=== PATIENT | male | born 1995 | race Caucasian/White ===

== ENCOUNTER 2020-06-13 08:48 | Emergency (ER) | payer MEDICAID, SELFPAY ==
[2020-06-13 08:54] VITALS: BP 142/85; PULSE 82; RESP 18; TEMP 36.3; O2SAT 99; BMI 26.3
--- NOTE | 2020-06-13 09:03 | ED_ITS ---
HPI - Abdominal Pain General: Chief Complaint: Abdominal Pain Stated Complaint: N/V, AB PAIN, SWEATING Time Seen by Provider: 06/13/20 08:54 History of Present Illness: HPI narrative: Patient is a 25-year-old male who comes to the ED with epigastric burning, nausea and vomiting. Past medical history of alcohol abuse. patient was recently seen by PCP on June 04 and diagnosed with pansinusitis and otitis media. Patient was put on Augmentin and Medrol Dosepak. Patient says ear infection, nasal congestion drainage and cough started approximately a week ago. Cough is still present in the nasal congestion and ear infection are improving. He describes the cough as productive. Patient admits to being a heavy daily drinker and says for the past 4 months he has drank 1/5 of vodka daily. Since he started getting sick a week ago his drinking is cut back considerably. He says he has probably drank a little more than 1/5 of whiskey over this past week, which is considerably less his daily amount for the past 7 days. His last alcoholic drink was a couple sips yesterday. Denies any DTs, anxiety, hallucinations. Approximately 3 days ago he started developing nausea, vomiting and epigastric pain. He says he has thrown up approximately 3 times a day for the past 3 days. He is also diaphoretic. Patient has been through alcohol detox in the past and states that he has not had any DTs, or any other complications during detox. Associated Symptoms: Reports nausea and vomiting; Denies chills, constipation, diarrhea, dysuria, fever(s), hematochezia and michele turia Review of Systems Const: Reports: change in appetite (decreased appetite) and diaphoresis; Denies: fever(s), chills or fatigue Eyes: Denies: change in vision or eye discomfort ENMT: Denies: throat pain, odynophagia, ear or mastoid pain, nasal discharge or nasal congestion Card: Denies: chest pain, palpitations, edema, swelling of feet/ankles, dyspnea on exertion or orthopnea Resp: Reports: productive cough; Denies: dyspnea or non-productive cough GI: Reports: abdominal pain (epigastric), nausea and vomiting; Denies: diarrhea, constipation or hematochezia : Denies: flank pain, difficulty urinating, dysuria or hematuria Musc: Denies: neck pain, back pain or extremity swelling Skin/Breast: Denies: rash or new lesions Neuro: Denies: headache(s), numbness in extremities or weakness in extremities PFSH ED PFSH: Social History Smoking and tobacco status: current every day smoker Current gender identity: Male Physical Exam Const: COMMON NORMALS: no acute distress, patient oriented x3 and alert GENERAL APPEARANCE: cooperative, comfortable and diaphoretic HENMT: COMMON NORMALS: normocephalic and EAC's normal HEAD & SCALP: normocephalic EXTERNAL AUDITORY CANAL: EAC's normal TYMPANIC MEMBRANE: TM abnormal TM laterality: right Details: erythematous (Mild erythema with clear fluid behind the TM.) and left (Erythema with cloudy fluid behind the TM.) Details: dull, erythematous and fluid behind TM MOUTH: Normal oral and palatal mucosa present THROAT: posterior oropharynx normal and uvula midline Neck/C-Spine: COMMON NORMALS: supple GENERAL: Yes normal visual inspection Resp: COMMON NORMALS: normal respiratory effort, No retractions, No use of accessory muscles and clear to auscultation bilaterally AUSCULTATION: clear to auscultation bilaterally Cardio: COMMON NORMALS: regular rate, regular rhythm, S1 normal heart sound present, S2 normal heart sound present, No gallops present (Cardio), No clicks present (Cardio), No murmurs present (Cardio) and Peripheral pulses 2+ throughout RATE: regular rate RHYTHM: regular rhythm HEART SOUNDS: S1 normal heart sound present and S2 normal heart sound present PERIPHERAL PULSES: Peripheral pulses 2+ throughout GI: COMMON NORMALS: Normal to inspection, nondistended, normoactive bowel sounds present, Soft to palpation and no masses PALPATION: Yes Soft to palpation and Yes Tenderness to palpation present (GI) Details: other (epigastric tenderness) : COMMON NORMALS: Yes no CVA tenderness BLADDER/KIDNEY EXAM: Yes no CVA tenderness Back/Pelvis: COMMON NORMALS: no CVA tenderness Extremity: COMMON NORMALS: normal to inspection Neuro: COMMON NORMALS: patient oriented x3 SENSORIUM/ORIENTATION: Yes alert GAIT: Yes Normal gait present MOTOR EXAM: No Tremors during motor activity present OTHER: No tremor seen on extremities. Skin: NARRATIVE SKIN EXAM: Diaphoresis, especially on head and neck. Course Reevaluation(s): Reevaluation #1: Patient says after IV fluids, Ativan, GI cocktail and Pepcid his symptoms are improving. Patient has no diaphoresis after meds patient says he is feeling a lot better. Time: 11:32 Vital Signs: Vital signs: Vital Signs Temperature 97.3 F L 06/13/20 08:54 Pulse Rate 104 H 06/13/20 12:18 Respiratory Rate 18 06/13/20 12:18 Blood Pressure 131/86 06/13/20 12:18 Pulse Oximetry 98 06/13/20 12:18 MDM - Abdominal Pain MDM Narrative: Medical decision making narrative: Patient is a 25-year-old male who comes to the ED with epigastric burning pain and nausea. Patient has a history of alcohol abuse and states that over the last week he has been cutting back his alcohol consumption. Patient denies any current or history of DTs, seizures or hallucinations. Patient is diaphoretic while here in the ED. Epigastric tenderness upon palpation. CBC and CMP were unremarkable. H. pylori negative. Alcohol not detected. Chest x-ray shows no acute findings, old granulomatous disease. EKG showed no acute findings or signs of MO. Patient was given an IV banana bag, Zofran, and Ativan and his symptoms greatly improved and has no more diaphoresis while here in the ED. GI cocktail greatly improved epigastric pain. Patient was diagnosed with gastritis from alcohol and alcohol withdrawal syndrome without any complications. Patient was discharged with a prescription for Carafate and Pepcid to help with his gastritis. He was instructed to contact his PCP in regards to alcohol detox plan if he chooses to. I also informed him he can return to ED as needed if he chooses to go through alcohol detox starts developing withdrawal symptoms. Patient understood and agreed with plan. Lab Data: Attestation: I reviewed the patient's lab results. Labs: Lab Results 06/13/20 06/13/20 06/13/20 Range/Units 09:00 09:00 09:00 WBC 6.0 (4.0-10.0) 10^3/ uL RBC 5.69 H (4.1-5.3) 10^6/u L Hgb 17.4 H (11.7-16.6) g/dL Hct 50.8 (42.0-52.0) % MCV 89.3 (80-94) fL MCH 30.6 (28.0-34.0) pg MCHC 34.3 (30.0-36.0) g/dL RDW 12.2 (12.1-15.1) % Plt Count 264 (130-400) 10^3/c mm MPV 9.4 (7.4-10.4) fL Neut % (Auto) 61.7 % Lymph % (Auto) 25.0 % Shelby % (Auto) 11.9 % Eos % (Auto) 0.2 % Baso % (Auto) 0.7 % Neut # (Auto) 3.73 (1.8-7.7) 10^3/u L Lymph # (Auto) 1.5 (0.8-4.8) 10^3/u L Shelby # (Auto) 0.7 (0.2-0.9) 10^3/u L Eos # (Auto) 0.0 (0.0-0.8) 10^3/u L Baso # (Auto) 0.0 (0.0-0.1) 10^3/u L Nucleated RBC % (a uto) 0 % Nucleated RBCs # 0.0 /100WBC Sodium Cancelled Potassium Cancelled Chloride Cancelled Carbon Dioxide Cancelled Anion Gap Cancelled BUN Cancelled Creatinine Cancelled GFR Calculation Cancelled Glucose Cancelled Calculated Osmolal ity Cancelled Calcium Cancelled Total Bilirubin Cancelled AST Cancelled ALT Cancelled Alkaline Phosphata se Cancelled Total Protein Cancelled Albumin Cancelled Globulin Cancelled Lipase Cancelled Urine Color (Yellow) Urine Appearance (CLEAR) Urine pH (5-7) Ur Specific Gravit y (1.005-1.030) Urine Protein (Negative) Urine Glucose (UA) (Normal) Urine Ketones (Negative) Urine Blood (Negative) Urine Nitrate (Negative) Urine Bilirubin (Negative) Urine Urobilinogen (Negative) mg/dL Ur Leukocyte Suzanne ase (Negative) Urine RBC (0-2) /hpf Urine WBC (0-5) /hpf Ur Squamous Epith Cells (0-5) /hpf Amorphous Sediment Urine Bacteria (NONE) /hpf Urine Mucus /hpf Ur Oval Fat Bodies /hpf Ethyl Alcohol Cancelled H. pylori IgG Anti body Negative (Negative) 06/13/20 06/13/20 Range/Units 09:52 11:30 WBC (4.0-10.0) 10^3/ uL RBC (4.1-5.3) 10^6/u L Hgb (11.7-16.6) g/dL Hct (42.0-52.0) % MCV (80-94) fL MCH (28.0-34.0) pg MCHC (30.0-36.0) g/dL RDW (12.1-15.1) % Plt Count (130-400) 10^3/c mm MPV (7.4-10.4) fL Neut % (Auto) % Lymph % (Auto) % Shelby % (Auto) % Eos % (Auto) % Baso % (Auto) % Neut # (Auto) (1.8-7.7) 10^3/u L Lymph # (Auto) (0.8-4.8) 10^3/u L Shelby # (Auto) (0.2-0.9) 10^3/u L Eos # (Auto) (0.0-0.8) 10^3/u L Baso # (Auto) (0.0-0.1) 10^3/u L Nucleated RBC % (a uto) % Nucleated RBCs # /100WBC Sodium 135 L Potassium 4.3 Chloride 96 L Carbon Dioxide 31 H Anion Gap 12.3 BUN 11 Creatinine 0.9 GFR Calculation 102.0 Glucose 103 Calculated Osmolal ity 280 L Calcium 9.6 Total Bilirubin 0.6 AST 27 ALT 19 Alkaline Phosphata se 89 Total Protein 7.8 Albumin 4.5 Globulin 3.3 Lipase 9 L Urine Color Yellow (Yellow) Urine Appearance Clear (CLEAR) Urine pH 5 (5-7) Ur Specific Gravit y 1.020 (1.005-1.030) Urine Protein Neg (Negative) Urine Glucose (UA) Norm (Normal) Urine Ketones 2+ H (Negative) Urine Blood Neg (Negative) Urine Nitrate Negative (Negative) Urine Bilirubin 1+ H (Negative) Urine Urobilinogen 4 H (Negative) mg/dL Ur Leukocyte Suzanne ase Negative (Negative) Urine RBC 0-4 H (0-2) /hpf Urine WBC 0-4 H (0-5) /hpf Ur Squamous Epith Cells 0-4 H (0-5) /hpf Amorphous Sediment Not Reportable Urine Bacteria Trace (NONE) /hpf Urine Mucus 3+ /hpf Ur Oval Fat Bodies 1+ /hpf Ethyl Alcohol < 10 H. pylori IgG Anti body (Negative) Imaging Data ^: CXR: Attestation: I personally reviewed and interpreted this imaging study as follows: Radiologist's impression: [facility] [address] [address] XRay Report Signed Patient: Milind Lantigua Unit #: [id number] : 1995 Age/Sex: 25 / M ADM Date: 06/13/20 Loc: ER Room/Bed: Attending Dr: Ordering Provider/Ordering MD: Leon Mace Date of Service: 06/13/20 Procedure(s): XR chest 1V portable [id number] Accession Number(s): [id number] Report Number: [id number] WS: [id number] Portable AP upright chest, 06/13/2020 Clinical Data: cough Comparison: None. Findings: No nodules, masses or effusions are seen. The heart is normal. The pulmonary vascularity is not increased. No pneumonia or pneumothorax is seen. There are small calcified granulomas throughout both lungs XR/XR chest 1V portable [id number] Impression: Old granulomatous disease. Dictated By: Vy Bustos MD Signed By: Vy Bustos MD Signed Date/Time: 06/13/20 1020 DD/ 1019 EKG Data ^: EKG 1: Attestation: I personally reviewed and interpreted this EKG as follows: EKG interpretation date: 06/13/20 Interpretation: Normal sinus rhythm, 85 bpm, no ST segment elevation or depression seen. No acute signs of MO present. Discharge Plan Discharge Patient Disposition: Home Clinical Impression: Alcohol withdrawal syndrome without complication Gastritis Qualifiers: Gastritis type: alcoholic Chronicity: acute Gastritis bleeding: presence of bleeding unspecified Qualified Code(s): K29.20 - Alcoholic gastritis without bleeding Condition: Stable Prescriptions: New Carafate 1 gram tablet 1 g PO Q6H Qty: 60 RF: 0 Pepcid 40 mg tablet 40 mg PO DAILY Qty: 30 RF: 0 Zofran 4 mg tablet 4 mg PO Q8H Qty: 15 RF: 0 No Action prazosin 1 mg capsule 3 mg PO BID RF: 0 divalproex [Depakote] 125 mg tablet,delayed release (DR/EC) 125 mg PO DAILY RF: 0 bupropion HCl [Wellbutrin SR] 100 mg tablet sustained-release 12 hr 100 mg PO BID RF: 0 amoxicillin-pot clavulanate [Augmentin] 875-125 mg tablet 1 tab PO BID 10 Days Qty: 20 RF: 0 methylprednisolone [Medrol (Jared)] 4 mg tablets,dose pack See Rx Instructions PO PER PKG DIR Qty: 21 RF: 0 Discharge Orders: Discharge ED (Routine); Ordered 06/13/20 Ordered By: Leon Mace Referrals: Cody Louis DO [Primary Care Provider] - Discharge Diet: Regular Discharge Activity: Increase activity as tolerated Patient Instructions: Gastritis (ED) Activity Restrictions/Additional Instructions: Follow-up with medical provider as directed in 5-7 days for reevaluation and to discuss alcohol cessation plan. Take medications as prescribed. I am sending you home with 2 mg of Ativan. Take 1 mg as needed for any alcohol withdrawal symptoms. Remember only take the Ativan if you are not drinking any alcohol. Return to the ER or your medical provider if condition worsens. Please read and understand discharge instructions. If any questions, please ask. Stand Alone Forms: Work/School Release Coding Level of Care Code ED Refractive Surgeon for Boris Fwnilda Exam Comprehensive
[2020-06-13] MEDS: lidocaine 2% viscous 15 ML, aluminum-mag hydrox-simethicon 30 ML, sucralfate oral liq 1 GM PO (09:24)
[2020-06-13] MEDS: ondansetron 2 mg/ML SDV 2 mL 4 MG IVP (09:27)
[2020-06-13] MEDS: LORazepam 2 mg/mL INJ 1 mL IVP (09:28)
[2020-06-13 09:39] LABS: H. Pylori IgG Antibody Negative (Negative)
[2020-06-13] MEDS: folic acid 1 MG, multivitamin inj 10 ML, thiamine 100 MG in sodium chloride 0.9% 1,000 ML 252.8 MG IV (09:40)
--- NOTE | 2020-06-13 09:52 | ECG_ITS ---
[facility] Test Date: 2020-06-13 Pat Name: Milind Lantigua Department: Room: Gender: Male Public Health Advisor: : 1995 Requested By: Leon Mace Order Number: [id number] Montaño MD: Mellisa Da Silva M.D. Measurements Intervals [place] Rate: 85 P: 60 MS: 112 QRS: 73 QRSD: 100 T: 49 QT: 363 QTc: 433 Interpretive Statements SINUS RHYTHM WITH SHORT MS INTERVAL NONSPECIFIC T-WAVE ABNORMALITY No previous ECG available for comparison Electronically Signed On 06-13-2020 20:22:05 HAND PICKER by Mellisa Da Silva M.D. [email or web address]
--- NOTE | 2020-06-13 10:12 | XR_ITS ---
WS: [id number] Portable AP upright chest, 06/13/2020 Clinical Data: cough Comparison: None. Findings: No nodules, masses or effusions are seen. The heart is normal. The pulmonary vascularity is not increased. No pneumonia or pneumothorax is seen. There are small calcified granulomas throughout both lungs XR/XR chest 1V portable [id number] Impression: Old granulomatous disease.
[2020-06-13 10:25] LABS: Basophils % 0.7 %; Eosinophils % 0.2 %; Hematocrit 50.8 % (42.0-52.0); Hemoglobin 17.4 g/dL (11.7-16.6); Lymphocytes # 1.5 10^3/uL (0.8-4.8); Mean Corpuscular HGB Conc 34.3 g/dL (30.0-36.0); Mean Corpuscular Hemoglobin 30.6 pg (28.0-34.0); Mean Corpuscular Volume 89.3 fL (80-94); Mean Platelet Volume 9.4 fL (7.4-10.4); Monocytes # 0.7 10^3/uL (0.2-0.9); Monocytes % 11.9 %; Neutrophils # 3.73 10^3/uL (1.8-7.7); Neutrophils % 61.7 %; Nucleated Red Blood Cells % 0 %; Platelet Count 264 10^3/cmm (130-400); Red Blood Count 5.69 10^6/uL (4.1-5.3); Red Cell Distribution Width 12.2 % (12.1-15.1)
[2020-06-13 10:26] LABS: Slide Review Slide Review Perform
[2020-06-13 10:29] VITALS: BP 137/86; PULSE 78; RESP 18; O2SAT 94
[2020-06-13 10:36] LABS: Alanine Aminotransferase 19 U/L (0-41); Albumin Level 4.5 g/dL (3.5-5.2); Alkaline Phosphatase 89 IU/L (40-130); Anion Gap 12.3 (5-19); Aspartate Amino Transferase 27 U/L (0-40); Blood Urea Nitrogen 11 mg/dL (6-20); Calcium 9.6 mg/dL (8.5-10.5); Carbon Dioxide 31 mmol/L (22-29); Chloride 96 mmol/L (98-107); Creatinine Clr Calc Pharmacy 152.2013; Globulin 3.3 g/dL (1.3-4.6); Glucose 103 mg/dL (65-115); Lipase 9 U/L (13-60); Osmolality Calculated 280 mOsm/kg (285-295); Potassium 4.3 mmol/L (3.5-5.1); Sodium 135 mmol/L (136-145); Total Bilirubin 0.6 mg/dL (0.15-1.2); Total Protein 7.8 g/dL (6.6-8.7)
[2020-06-13 10:38] LABS: Alcohol Level < 10 mg/dL (0-10)
[2020-06-13] MEDS: famotidine 20 mg/2 mL INJ 40 MG IVP (10:40)
[2020-06-13 12:01] LABS: Add Urine Culture? No; Bacteria Urine TRACE /hpf; Bilirubin Urine 1+ (Negative); Blood Urine Neg (Negative); Glucose Urine UA Norm (Normal); Ketones Urine 2+ (Negative); Leukocyte Esterase Urine Negative (Negative); Mucus Urine 3+ /hpf; Nitrate Urine Negative (Negative); Oval Fat Bodies Urine 1+ /hpf; Protein Urine Neg (Negative); RBC Urine 0-4 /hpf (0-2); Squamous Epithelial Cell Urine 0-4 /hpf (0-5); Urine Appearance Clear (CLEAR); Urine Color Yellow (Yellow); Urobilinogen Urine 4 mg/dL (Negative); WBC Urine 0-4 /hpf (0-5); pH Urine 5 (5-7)
[2020-06-13] MEDS: LORazepam 2 mg Tablet PO (12:15)
--- NOTE | 2020-06-13 12:15 | PC.NURSE ---
scanner not working even after unplugging and plugging back in, sent ativan home with pt to take when arriving home
[2020-06-13 12:18] VITALS: BP 131/86; PULSE 104; RESP 18; O2SAT 98
== END 2020-06-13 12:20 | disposition home or self-care (01) ==
PROVIDERS: Emergency Provider Physician Assistant; PCP Electrodiagnostic Medicine
DX: K29.20 Alcoholic gastritis without bleeding (principal); F10.230 Alcohol dependence with withdrawal, uncomplicated; F17.210 Nicotine dependence, cigarettes, uncomplicated
CPT/HCPCS: 12345; 36415; 71045; 80053; 80307; 81001; 83690; 85025; 86677; 93005; 96374; 96375; 99282; 99283; J2060; J2405; J3411; J3490; J7030

== ENCOUNTER 2020-10-18 19:19 | Inpatient (IN) | payer MEDICAID, SELFPAY ==
[2020-10-18] VITALS (15 sets, daily range): BP systolic 102–169; BP diastolic 52–96; PULSE 69–160; RESP 14–30; TEMP 36.4–36.6; O2SAT 91–100; BMI 24.3
--- NOTE | 2020-10-18 19:30 | CTR_ITS ---
PROCEDURE INFORMATION: Exam: CT Head Without Contrast Exam date and time: 10/18/2020 7:30 PM Age: 25 years old Clinical indication: Altered mental status/memory loss; Patient HX: AMS. Drug overdose. ; Additional info: AMS on drugs TECHNIQUE: Imaging protocol: Computed tomography of the head without contrast. Total images: 208 Radiation optimization: All CT scans at this facility use at least one of these dose optimization techniques: automated exposure control; mA and/or kV adjustment per patient size (includes targeted exams where dose is matched to clinical indication); or iterative reconstruction. COMPARISON: No relevant prior studies available. RADIATION DOSE METRICS: Total DLP (mGy-cm): 894.4 FINDINGS: Brain: Normal. No hemorrhage. Unremarkable white matter. No mass effect. Cerebral ventricles: No ventriculomegaly. Paranasal sinuses: Visualized sinuses are unremarkable. No fluid levels. Mastoid air cells: Visualized mastoid air cells are well aerated. Bones/joints: Unremarkable. No acute fracture. Soft tissues: Unremarkable. CT/CT head wo con* [id number] IMPRESSION: No acute intracranial abnormality. Radiation Dose CTDIVOL = (mGy): DLP = 894.4 (mGy-cm)
--- NOTE | 2020-10-18 19:30 | XRR_ITS ---
PROCEDURE INFORMATION: Exam: XR Chest Exam date and time: 10/18/2020 7:30 PM Age: 25 years old Clinical indication: Device placement; Ett placement (vent status); Additional info: Reduced breath sounds. AMS. On drugs. Post intubate TECHNIQUE: Imaging protocol: XR of the chest. Views: 1 view. Total images: 1 COMPARISON: CR XR chest 1V portable [id number] 06/13/2020 10:11 AM FINDINGS: Tubes, catheters and devices: Interval placement of an endotracheal tube with the tip directed toward the ostium of the right mainstem bronchus. Recommend retracting 3 cm for optimal positioning. EKG leads. Lungs: No visible active interstitial or alveolar airspace disease. Pleural spaces: Unremarkable. No pleural effusion. No pneumothorax. Heart/Mediastinum: Unremarkable. No cardiomegaly. Bones/joints: Unremarkable. XR/XR chest 1V portable [id number] IMPRESSION: Interval placement of an endotracheal tube with the tip directed toward the ostium of the right mainstem bronchus. Recommend retracting 3 cm for optimal positioning.
[2020-10-18] MEDS: ziprasidone 20 mg/mL SDV 10 MG IM (19:40)
[2020-10-18] MEDS: vecuronium 10 mg SDV 20 MG IVP (19:53)
--- NOTE | 2020-10-18 20:01 | ED_ITS ---
Documented by User: Zak Meade MD 10/18/20 23:09 HPI - Altered Mental Status General: Chief Complaint: Altered Mental Status Stated Complaint: AMS, Combative Time Seen by Provider: 10/18/20 19:30 History of Present Illness: HPI narrative: The patient is a 25-year-old male brought in by EMS after taking 4 hits of acid and becoming combative. He also has a history of alcohol. He was combative with EMS and they gave him 350 mg ketamine IM in route. On arrival he is writhing and screaming and having hallucinations. I did a [id number] on arrival and deemed him to be a significant danger to himself and placed him in restraints. He is unable to give any history. He is diaphoretic and tachycardic MD complaint: altered mental status and intoxication Review of Systems General: Reports: ROS unobtainable due to mental status [facility] ED PFSH: Medical History Alcohol abuse Social History (Updated 10/18/20 @ 23:03 by Charley Harman MD) Smoking and tobacco status: current every day smoker Alcohol intake: unknown Substance/Drug Use: current Substance/Drug use type: Hallucinogens and Methamphetamine Current gender identity: Male Physical Exam Narrative: EXAM NARRATIVE: 25-year-old with significant altered mental status likely intoxicated on multiple substances and given 350 ketamine prior to arrival by EMS. He is actively hallucinating, diaphoretic, needing restraints to protect him from injuring himself. Const: EXAM LIMITATIONS: altered mental status GENERAL APPEARANCE: combative and ill appearing OTHER: unable to respond to questions. Significantly altered and hallucinating. HENMT: COMMON NORMALS: normocephalic and Normal external nose present HEAD & SCALP: normocephalic NOSE: Normal external nose present Eye: COMMON NORMALS: EOMs intact bilaterally GENERAL EYE: other (dilated pupils bilaterally with normal light reflex) PUPIL: Yes Dilated pupils Neck/C-Spine: COMMON NORMALS: full ROM GENERAL: Yes normal visual inspection Chest: COMMONS NORMALS: normal inspection of the chest OTHER: diaphoretic Resp: COMMON NORMALS: normal respiratory effort and clear to auscultation bilaterally EFFORT & INSPECTION: Yes tachypneic AUSCULTATION: clear to auscultation bilaterally Cardio: RATE: tachycardic GI: COMMON NORMALS: Normal to inspection, nondistended, normoactive bowel sounds present and Soft to palpation PALPATION: Yes Soft to palpation Back/Pelvis: LUMBAR SPINE/LOWER BACK: Yes normal to inspection Extremity: COMMON NORMALS: normal to inspection and full ROM GENERAL: Yes normal exam except as noted Neuro: JOSE GUADALUPE COMA SCALE: document [facility] findings [place] coma scale eye opening: Spontaneous Jose Guadalupe coma scale verbal response: Sounds Jose Guadalupe coma scale motor response: Normal flexion [place] coma scale total score: 10 COMMON NORMALS: moves all extremities SENSORIUM/ORIENTATION: Yes stuporous CRANIAL NERVES: Yes CN normal except as noted OTHER: Significantly altered mental status. He is intoxicated on multiple substances screaming loudly and writhing even while restrained he still presents a risk to himself. Psych: OTHER: Acutely psychotic actively hallucinating likely from intoxicant plus ketamine. Skin: OTHER: Pale, diaphoretic Course Vital Signs: Vital signs: Vital Signs Temperature 98 F 10/18/20 22:26 Pulse Rate 101 H 10/18/20 22:26 Respiratory Rate 16 10/18/20 22:52 Blood Pressure 137/84 10/18/20 22:26 Pulse Oximetry 100 10/18/20 22:52 MDM - Altered Mental Status MDM Narrative: Medical decision making narrative: The patient came in acutely psychotic likely intoxicated on LSD. EMS gave him 350 mg IM ketamine as well. He is not responding to vocal stimuli but does have his eyes open and is respirating. He is pale and diaphoretic as well as tachycardic. He was placed in a restraint bed as he prevents significant risk of harm to himself and I performed a [id number]. I ordered 10 of Geodon intramuscular and will sign out care of this patient to Dr. Vo Lab Data: Labs: Lab Results 10/18/20 10/18/20 10/18/20 Range/Units 20:10 20:10 20:42 WBC 16.0 H (4.0-10.0) 10^3/ uL RBC 5.78 H (4.1-5.3) 10^6/u L Hgb 17.2 H (11.7-16.6) g/dL Hct 54.0 H (42.0-52.0) % MCV 93.4 (80-94) fL MCH 29.8 (28.0-34.0) pg MCHC 31.9 (30.0-36.0) g/dL RDW 11.9 L (12.1-15.1) % Plt Count 390 (130-400) 10^3/c mm MPV 8.7 (7.4-10.4) fL Neut % (Auto) 68.0 % Lymph % (Auto) 24.4 % [place] % (Auto) 5.7 % Eos % (Auto) 0.6 % Baso % (Auto) 0.5 % Neut # (Auto) 10.90 H (1.8-7.7) 10^3/u L Lymph # (Auto) 3.9 (0.8-4.8) 10^3/u L [place] # (Auto) 0.9 (0.2-0.9) 10^3/u L Eos # (Auto) 0.1 (0.0-0.8) 10^3/u L Baso # (Auto) 0.1 (0.0-0.1) 10^3/u L Nucleated RBC % (a uto) 0 % Nucleated RBCs # 0.0 /100WBC Sodium Cancelled Potassium Cancelled Chloride Cancelled Carbon Dioxide Cancelled Anion Gap Cancelled BUN Cancelled Creatinine Cancelled GFR Calculation Cancelled Glucose Cancelled Calculated Osmolal ity Cancelled Lactate 7.4 H* (0.5-2.2) mmol/L Calcium Cancelled Total Bilirubin Cancelled AST Cancelled ALT Cancelled Alkaline Phosphata se Cancelled Creatine Kinase Cancelled Total Protein Cancelled Albumin Cancelled Globulin Cancelled Salicylates Cancelled Acetaminophen Cancelled Valproic Acid Cancelled Ethyl Alcohol Cancelled 10/18/20 Range/Units 20:42 WBC (4.0-10.0) 10^3/ uL RBC (4.1-5.3) 10^6/u L Hgb (11.7-16.6) g/dL Hct (42.0-52.0) % MCV (80-94) fL MCH (28.0-34.0) pg MCHC (30.0-36.0) g/dL RDW (12.1-15.1) % Plt Count (130-400) 10^3/c mm MPV (7.4-10.4) fL Neut % (Auto) % Lymph % (Auto) % [place] % (Auto) % Eos % (Auto) % Baso % (Auto) % Neut # (Auto) (1.8-7.7) 10^3/u L Lymph # (Auto) (0.8-4.8) 10^3/u L [place] # (Auto) (0.2-0.9) 10^3/u L Eos # (Auto) (0.0-0.8) 10^3/u L Baso # (Auto) (0.0-0.1) 10^3/u L Nucleated RBC % (a uto) % Nucleated RBCs # /100WBC Sodium 137 Potassium 3.8 Chloride 99 Carbon Dioxide 17 L Anion Gap 24.8 H BUN 16 Creatinine 1.1 GFR Calculation 80.9 L Glucose 163 H Calculated Osmolal ity 289 Lactate (0.5-2.2) mmol/L Calcium 9.5 Total Bilirubin 0.4 AST 26 ALT 29 Alkaline Phosphata se 88 Creatine Kinase 289 Total Protein 8.0 Albumin 5.0 Globulin 3.0 Salicylates Acetaminophen Valproic Acid 2.8 L Ethyl Alcohol < 10 Discharge Plan Discharge Patient Disposition: Admitted As Inpatient Admit Provider: Charley Harman Clinical Impression: Altered mental status, Overdose Condition: Stable Coding Level of Care Code ED Shirt Maker for Chg Fwd Exam Comprehensive Face to Face: Restrn/Seclusion Events leading up to initiation: Demonstrating self-destructive behavior (cutting, hitting yoo etc.) and Combative/Striking out at staff or others Evaluation of patient's immediate situation: Signs of physical distress and Signs of psychological distress Patient reaction since intervention applied: Continued attempts/displays harmful behavior Recent labs reviewed: Yes Review of medications: Yes Patient's current medical/behavioral condition: New concerns (describe) Need for restraint or seclusion is: Continued Attending notified: Yes Documented by User: Chucky Vo MD 10/18/20 21:38 HPI - Altered Mental Status General: Chief Complaint: Altered Mental Status Stated Complaint: AMS, Combative Time Seen by Provider: 10/18/20 19:30 PFSH ED [facility]: Medical History Alcohol abuse Social History (Updated 10/18/20 @ 23:03 by Charley Harman MD) Smoking and tobacco status: current every day smoker Alcohol intake: unknown Substance/Drug Use: current Substance/Drug use type: Hallucinogens and Methamphetamine Current gender identity: Male Procedures Intubation Time out performed: Yes sedative: Etomidate Mg Given: 20 paralytic: Vecuronium Mg Given: 40 Laryngoscope: Judie ET Tube Size: 8 ET Tube Uncuffed: No Tube Secured Depth (cm): 24 Tube Secured Location: teeth Tube Placement Confirmation: visualized tube passing through cords, equal breath sounds bilaterally, no breath sounds over epigastrium and confirmation by capnometry Patient Tolerated Procedure: well Intubation Complications: none Course Reevaluation(s): Reevaluation #1: I took patient over from Dr. Mendez. Patient here is incoherent and overdose likely on methamphetamine or LSD. He is quite tachycardic with heart rates in the 180s and diffusely diaphoretic. Patient is combative and does not have an IV. We did drill an IV into his tibia gave him etomidate and meconium to intubate him as he is having excited delirium. Time: 20:00 Vital Signs: Vital signs: Vital Signs Temperature 98 F 10/18/20 22:26 Pulse Rate 101 H 10/18/20 22:26 Respiratory Rate 16 10/18/20 22:52 Blood Pressure 137/84 10/18/20 22:26 Pulse Oximetry 100 10/18/20 22:52 MDM - Altered Mental Status MDM Narrative: Medical decision making narrative: Patient presents here with overdose likely on methamphetamine and LSD. Patient was quite agitated with excited delirium. He is very tachycardic hypertensive and diaphoretic. Patient had to be intubated due to all this. Patient's improved since intubation his heart rate down to 105. He is currently on propofol. His head CT here is normal. Spoke to hospitalist and will admit to the ICU. Lab Data: Labs: Lab Results 10/18/20 10/18/20 10/18/20 Range/Units 20:10 20:10 20:42 WBC 16.0 H (4.0-10.0) 10^3/ uL RBC 5.78 H (4.1-5.3) 10^6/u L Hgb 17.2 H (11.7-16.6) g/dL Hct 54.0 H (42.0-52.0) % MCV 93.4 (80-94) fL MCH 29.8 (28.0-34.0) pg MCHC 31.9 (30.0-36.0) g/dL RDW 11.9 L (12.1-15.1) % Plt Count 390 (130-400) 10^3/c mm MPV 8.7 (7.4-10.4) fL Neut % (Auto) 68.0 % Lymph % (Auto) 24.4 % [place] % (Auto) 5.7 % Eos % (Auto) 0.6 % Baso % (Auto) 0.5 % Neut # (Auto) 10.90 H (1.8-7.7) 10^3/u L Lymph # (Auto) 3.9 (0.8-4.8) 10^3/u L [place] # (Auto) 0.9 (0.2-0.9) 10^3/u L Eos # (Auto) 0.1 (0.0-0.8) 10^3/u L Baso # (Auto) 0.1 (0.0-0.1) 10^3/u L Nucleated RBC % (a uto) 0 % Nucleated RBCs # 0.0 /100WBC Sodium Cancelled Potassium Cancelled Chloride Cancelled Carbon Dioxide Cancelled Anion Gap Cancelled BUN Cancelled Creatinine Cancelled GFR Calculation Cancelled Glucose Cancelled Calculated Osmolal ity Cancelled Lactate 7.4 H* (0.5-2.2) mmol/L Calcium Cancelled Total Bilirubin Cancelled AST Cancelled ALT Cancelled Alkaline Phosphata se Cancelled Creatine Kinase Cancelled Total Protein Cancelled Albumin Cancelled Globulin Cancelled Salicylates Cancelled Acetaminophen Cancelled Valproic Acid Cancelled Ethyl Alcohol Cancelled 10/18/20 Range/Units 20:42 WBC (4.0-10.0) 10^3/ uL RBC (4.1-5.3) 10^6/u L Hgb (11.7-16.6) g/dL Hct (42.0-52.0) % MCV (80-94) fL MCH (28.0-34.0) pg MCHC (30.0-36.0) g/dL RDW (12.1-15.1) % Plt Count (130-400) 10^3/c mm MPV (7.4-10.4) fL Neut % (Auto) % Lymph % (Auto) % [place] % (Auto) % Eos % (Auto) % Baso % (Auto) % Neut # (Auto) (1.8-7.7) 10^3/u L Lymph # (Auto) (0.8-4.8) 10^3/u L [place] # (Auto) (0.2-0.9) 10^3/u L Eos # (Auto) (0.0-0.8) 10^3/u L Baso # (Auto) (0.0-0.1) 10^3/u L Nucleated RBC % (a uto) % Nucleated RBCs # /100WBC Sodium 137 Potassium 3.8 Chloride 99 Carbon Dioxide 17 L Anion Gap 24.8 H BUN 16 Creatinine 1.1 GFR Calculation 80.9 L Glucose 163 H Calculated Osmolal ity 289 Lactate (0.5-2.2) mmol/L Calcium 9.5 Total Bilirubin 0.4 AST 26 ALT 29 Alkaline Phosphata se 88 Creatine Kinase 289 Total Protein 8.0 Albumin 5.0 Globulin 3.0 Salicylates Acetaminophen Valproic Acid 2.8 L Ethyl Alcohol < 10 Imaging Data^: CT Head: Radiologist's impression: [address] [address] [address] Scan Report Signed Patient: Milind Lantigua Unit #: [id number] : 1995 Age/Sex: 25 / M ADM Date: 10/18/20 Loc: ER Room/Bed: Attending Dr: Ordering Provider/Ordering MD: Zak Meade MD Date of Service: 10/18/20 Procedure(s): CT head wo con* [id number] Accession Number(s): [id number] Report Number: [id number] PROCEDURE INFORMATION: Exam: CT Head Without Contrast Exam date and time: 10/18/2020 7:30 PM Age: 25 years old Clinical indication: Altered mental status/memory loss; Patient HX: AMS. Drug overdose. ; Additional info: AMS on drugs TECHNIQUE: Imaging protocol: Computed tomography of the head without contrast. Total images: 208 Radiation optimization: All CT scans at this facility use at least one of these dose optimization techniques: automated exposure control; mA and/or kV adjustment per patient size (includes targeted exams where dose is matched to clinical indication); or iterative reconstruction. COMPARISON: No relevant prior studies available. RADIATION DOSE METRICS: Total DLP (mGy-cm): 894.4 FINDINGS: Brain: Normal. No hemorrhage. Unremarkable white matter. No mass effect. Cerebral ventricles: No ventriculomegaly. Paranasal sinuses: Visualized sinuses are unremarkable. No fluid levels. Mastoid air cells: Visualized mastoid air cells are well aerated. Bones/joints: Unremarkable. No acute fracture. Soft tissues: Unremarkable. CT/CT head wo con* [id number] IMPRESSION: No acute intracranial abnormality. EKG Data^: EKG 1: Attestation: I personally reviewed and interpreted this EKG as follows: EKG interpretation date: 10/18/20 EKG interpretation time: 21:19 Interpretation: sinus tach hr [address] or t wave abnormalities qrs 105 qtc 411 Critical Care Time Critical Care Time: Critical Care Time: Yes Total Critical Care Time: 35 Attestation: This case had a high probability of a clinically significant, sudden, or life threatening deterioration of this patient's condition which required my full and direct attention, intervention and personal management. Discharge Plan Discharge Patient Disposition: Admitted As Inpatient Admit Provider: Charley Harman Clinical Impression: Altered mental status, Overdose Condition: Stable Coding Level of Care Code ED Shirt Maker for Chg Fwd Exam Comprehensive
[2020-10-18 20:17] LABS: Basophils # 0.1 10^3/uL (0.0-0.1); Basophils % 0.5 %; Eosinophils # 0.1 10^3/uL (0.0-0.8); Eosinophils % 0.6 %; Hemoglobin 17.2 g/dL (11.7-16.6); Lymphocytes # 3.9 10^3/uL (0.8-4.8); Lymphocytes % 24.4 %; Mean Corpuscular HGB Conc 31.9 g/dL (30.0-36.0); Mean Corpuscular Hemoglobin 29.8 pg (28.0-34.0); Mean Corpuscular Volume 93.4 fL (80-94); Mean Platelet Volume 8.7 fL (7.4-10.4); Monocytes # 0.9 10^3/uL (0.2-0.9); Monocytes % 5.7 %; Nucleated Red Blood Cells % 0 %; Platelet Count 390 10^3/cmm (130-400); Red Blood Count 5.78 10^6/uL (4.1-5.3); Red Cell Distribution Width 11.9 % (12.1-15.1)
--- NOTE | 2020-10-18 21:00 | XRR_ITS ---
PROCEDURE INFORMATION: Exam: XR Chest Exam date and time: 10/18/2020 9:00 PM Age: 25 years old Clinical indication: Device placement; Ett placement (vent status); Additional info: Et tube. TECHNIQUE: Imaging protocol: XR of the chest. Views: 1 view. Total images: 1 COMPARISON: CR (CHEST, ) 10/18/2020 7:51 PM FINDINGS: Tubes, catheters and devices: Endotracheal tube has been retracted now lying in satisfactory position tip above the argenis. Lungs: No visible active interstitial or alveolar airspace disease. Pleural spaces: Unremarkable. No pleural effusion. No pneumothorax. Heart/Mediastinum: Unremarkable. No cardiomegaly. Bones/joints: Unremarkable. XR/XR chest 1V portable [id number] IMPRESSION: Endotracheal tube has been retracted now lying in satisfactory position tip above the argenis.
--- NOTE | 2020-10-18 21:01 | ECG_ITS ---
[facility] Test Date: 2020-10-18 Pat Name: Milind Lantigua Department: Room: ICU10 Gender: Male Independent Driver: : 1995 Requested By: Chucky Vo Order Number: [id number] Danyel MD: Mellisa Da Silva M.D. Measurements Intervals Abrams Rate: 101 P: 77 IA: 152 QRS: 90 QRSD: 105 T: 46 QT: 353 QTc: 459 Interpretive Statements SINUS TACHYCARDIA NONSPECIFIC T-WAVE ABNORMALITY ABNORMAL RHYTHM ECG Compared to ECG 06/13/2020 10:11:18 Ventricular premature complex(es) now present Sinus rhythm no longer present Short IA interval no longer present T-wave abnormality still present Electronically Signed On 10-19-2020 22:57:58 CDT by Mellisa Da Silva M.D. [id number]
[2020-10-18 21:07] LABS: Blood Urea Nitrogen 16 mg/dL (6-20); Carbon Dioxide 17 mmol/L (22-29); Chloride 99 mmol/L (98-107); Glomerular Filtration Rate 80.9 mL/min (90-130); Sodium 137 mmol/L (136-145)
[2020-10-18 21:08] LABS: Alanine Aminotransferase 29 U/L (0-41); Alkaline Phosphatase 88 IU/L (40-130); Calcium 9.5 mg/dL (8.5-10.5); Creatine Phosphokinase 289 U/L (39-308); Glucose 163 mg/dL (65-115); Osmolality Calculated 289 mOsm/kg (285-295); Total Bilirubin 0.4 mg/dL (0.15-1.2)
[2020-10-18 21:11] LABS: Alcohol Level < 10 mg/dL (0-10); Lactate (Lactic Acid level) 7.4 mmol/L (0.5-2.2)
[2020-10-18 21:12] LABS: Anion Gap 24.8 (5-19); Aspartate Amino Transferase 26 U/L (0-40); Potassium 3.8 mmol/L (3.5-5.1)
[2020-10-18] MEDS: sodium chloride 0.45% 1,000 ML 150 ML IV ×2 (21:15→22:51)
[2020-10-18] MEDS: vecuronium 10 mg SDV IVP (21:23)
[2020-10-18 21:55] LABS: ABG PCO2 47.5 mmHg (35-45); Arterial Blood Gas Hematocrit 46.9 % (42-52); Base Excess ABG -3.5 mmol/L (-2.0-2.0); Blood Gas Operator Identificat AMH; Blood Gas Sample Site Brachial, left; Blood Gas Sample Type Arterial; Carboxyhemoglobin 0.8 %THgb (0.4-20.1); HCO3 ABG 23.3 mmol/L (22-26); HGB O2 Sat 97.5 % (95-100); Methemoglobin 0.9 % (0.4-1.5); Oxygen Device VENT; Total Hemoglobin 15.3 g/dL (14-18)
--- NOTE | 2020-10-18 22:24 | P.HP_ITS ---
Providers/Chief Complaint Admitting Physician: Charley Harman MD Primary Care Provider: Cody Louis DO Chief Complaint: AMS, Combative History of Present Illness Milind Lantigua is a 25 year old male who presented to the emergency room via EMS. I am not sure what the details were out in the field but patient was extremely combative. It is reported that he had taken 4 hits of acid . In route he received 350 mg of ketamine IM. On arrival here he was extremely diaphoretic, tachycardic and hypertensive, hallucinating and screaming constantly. He received a total of 30 mg of Geodon IM. He had no response from this either. He ultimately required physical restraint for safety and an IO was placed in the right lower extremity and he received propofol and other RSI me dications and was subsequently intubated. He has been requiring a combination of propofol, Versed and fentanyl. Its were as high as into the 190s and systolic pressures were similar when able to be checked. After intubation, heart rate and blood pressures have improved dramatically as has his degree of diaphoresis. He is being admitted secondary to severe excited delirium related to intoxication necessitating sedation and intubation for medical safety. Urine drug screen showed positive amphetamine and marijuana. PCP was negative. Alcohol level was not elevated. Clinically he appeared to be responding to hallucinogenic agent. History is not able to be obtained otherwise from him. A review of medical records does indicate that back in 2012 he admitted to IV methamphetamine use. Unclear if he continued to use it after that time. A recent record from earlier this year admits to heavy drinking. He smokes. A couple of records indicate use of marijuana. No known medical history otherwise when I do not see records of any psychiatric admissions here. He had upper respiratory, sinus and middle ear infections that were treated earlier this year. Home medication list includes bupropion, divalproex and prazosin suggesting mood disorder diagnosis. Does not appear that he has had them filled since June of this year however. Valproic acid level was low at 2.8. Review of Systems General: Reports: ROS unobtainable due to endotracheal tube and ROS unobtainable due to mental status Medications/Allergies Home Medications Medication Instructions Recorded Confirmed Last Taken Type bupropion HCl 100 mg tablet,12 hr 100 mg PO BID 06/04/20 06/09/20 Unknown History sustained-release divalproex 125 mg tablet,delayed 125 mg PO DAILY tab 06/04/20 06/09/20 Unknown History release prazosin 1 mg capsule 3 mg PO BID cap 06/04/20 06/09/20 Unknown History Allergies Allergy/AdvReac Type Severity Reaction Status Date / Time No Known Allergies Allergy Verified 06/09/20 17:55 Additional Medication Information I personally reviewed home medication list and medications received day of admission thus far. PFSH Acute PFSH: Medical History (Updated 10/19/20 @ 01:06 by Charley Harman MD) Alcohol abuse History of intravenous drug abuse documented in 2012, methamphetamine Nicotine dependence, cigarettes, uncomplicated smoked since age 10 Surgical History (Updated 10/18/20 @ 23:11 by Charley Harman MD) History of adenoidectomy History of tonsillectomy Family History (Updated 10/18/20 @ 23:10 by Charley Harman MD) Other Cancer Heart disease Social History (Updated 10/18/20 @ 23:03 by Charley Harman MD) Smoking and tobacco status: current every day smoker Alcohol intake: unknown Substance/Drug Use: current Substance/Drug use type: Hallucinogens and Methamphetamine Current gender identity: Male Supplemental PFSH Information: Unable to obtain or verify history with patient, information above obtained from review of old EMR records Vitals/I&O/Wt Temp Pulse Resp BP Pulse Ox 98 F 101 H 18 137/84 99 10/18/20 22:26 10/18/20 22:26 10/18/20 23:34 10/18/20 22:26 10/18/20 23:34 Weight last 48 hrs Weight 86.183 kg Physical Exam Narrative: EXAM NARRATIVE: Constitutional: Diaphoretic, remains restless despite being on propofol, fentanyl and receiving some intermittent Versed HEENT: Dilated but reactive pupils, injected sclera, nystagmus, clear rhinorrhea, increased oral secretions, no visible tongue lesions although unable to fully see back of throat, jaw not clenched Neck: Supple Respiratory: Clear bilaterally Cardiovascular: Regular rhythm, tachycardic, no murmurs, 2+ pulses x4 Abdomen: Soft, nontender, positive bowel sounds : Normal external genitalia, positive Nix Extremities: No pitting edema Skin: Multiple sores in different stages of healing, looks like a lot of bug bites, all with some surrounding erythema but no extension beyond the wounds Neuro: Moves all extremities, still restless Psych: Not cooperative Data : 10/18/20 20:10 10/18/20 20:42 Other data: Laboratory Results WBC 16.0 10^3/uL (4.0-10.0) H 10/18/20 20:10 RBC 5.78 10^6/uL (4.1-5.3) H 10/18/20 20:10 Hgb 17.2 g/dL (11.7-16.6) H 10/18/20 20:10 Hct 54.0 % (42.0-52.0) H 10/18/20 20:10 MCV 93.4 fL (80-94) 10/18/20 20:10 MCH 29.8 pg (28.0-34.0) 10/18/20 20:10 MCHC 31.9 g/dL (30.0-36.0) 10/18/20 20:10 RDW 11.9 % (12.1-15.1) L 10/18/20 20:10 Plt Count 390 10^3/cmm (130-400) 10/18/20 20:10 MPV 8.7 fL (7.4-10.4) 10/18/20 20:10 Neut % (Auto) 68.0 % 10/18/20 20:10 Lymph % (Auto) 24.4 % 10/18/20 20:10 Parker % (Auto) 5.7 % 10/18/20 20:10 Eos % (Auto) 0.6 % 10/18/20 20:10 Baso % (Auto) 0.5 % 10/18/20 20:10 Neut # (Auto) 10.90 10^3/uL (1.8-7.7) H 10/18/20 20:10 Lymph # (Auto) 3.9 10^3/uL (0.8-4.8) 10/18/20 20:10 Parker # (Auto) 0.9 10^3/uL (0.2-0.9) 10/18/20 20:10 Eos # (Auto) 0.1 10^3/uL (0.0-0.8) 10/18/20 20:10 Baso # (Auto) 0.1 10^3/uL (0.0-0.1) 10/18/20 20:10 Nucleated RBC % (auto) 0 % 10/18/20 20:10 Nucleated RBCs # 0.0 /100WBC 10/18/20 20:10 Specimen Type Arterial 10/19/20 00:40 Sample Site Brachial, right 06 00:40 ABG pH 7.36 (7.35-7.45) 10/19/20 00:40 ABG pCO2 41.0 mmHg (35-45) 10/19/20 00:40 ABG pO2 118.0 mmHg (80.0-100.0) H 10/19/20 00:40 ABG HCO3 23.2 mmol/L (22-26) 10/19/20 00:40 ABG Base Excess -2.2 mmol/L (-2.0-2.0) L 10/19/20 00:40 Woo Test N/a 10/19/20 00:40 Hematocrit 45.2 % (42-52) 10/19/20 00:40 Hgb O2 Saturation 97.5 % (95-100) 10/18/20 21:44 Carboxyhemoglobin 0.8 %THgb (0.4-20.1) 10/18/20 21:44 Methemoglobin 0.9 % (0.4-1.5) 10/18/20 21:44 Total Hemoglobin 15.3 g/dL (14-18) 10/18/20 21:44 O2 Delivery Device Vent 10/19/20 00:40 Mechanical Rate 18.0 10/19/20 00:40 FiO2 45.0 % 10/19/20 00:40 Tidal Volume 0.50 10/19/20 00:40 PEEP 6.0 cmH20 10/19/20 00:40 Welfare Project Manager ID Hinja 10/19/20 00:40 Sodium 137 mmol/L (136-145) 10/18/20 20:42 Potassium 3.8 mmol/L (3.5-5.1) 10/18/20 20:42 Chloride 99 mmol/L (98-107) 10/18/20 20:42 Carbon Dioxide 17 mmol/L (22-29) L 10/18/20 20:42 Anion Gap 24.8 (5-19) H 10/18/20 20:42 BUN 16 mg/dL (6-20) 10/18/20 20:42 Creatinine 1.1 mg/dL (0.7-1.2) 10/18/20 20:42 GFR Calculation 80.9 mL/min (90-130) L 10/18/20 20:42 Glucose 163 mg/dL (65-115) H 10/18/20 20:42 Calculated Osmolality 289 mOsm/kg (285-295) 10/18/20 20:42 Lactate 7.4 mmol/L (0.5-2.2) H* 10/18/20 20:42 Calcium 9.5 mg/dL (8.5-10.5) 10/18/20 20:42 Total Bilirubin 0.4 mg/dL (0.15-1.2) 10/18/20 20:42 AST 26 U/L (0-40) 10/18/20 20:42 ALT 29 U/L (0-41) 10/18/20 20:42 Alkaline Phosphatase 88 IU/L (40-130) 10/18/20 20:42 Creatine Kinase 289 U/L (39-308) 10/18/20 20:42 Total Protein 8.0 g/dL (6.6-8.7) 10/18/20 20:42 Albumin 5.0 g/dL (3.5-5.2) 10/18/20 20:42 Globulin 3.0 g/dL (1.3-4.6) 10/18/20 20:42 Urine Color Yellow (Yellow) 10/18/20 21:46 Urine Appearance Clear (CLEAR) 10/18/20 21:46 Urine pH 5 (5-7) 10/18/20 21:46 Ur Specific [place] 1.025 (1.005-1.030) 10/18/20 21:46 Urine Protein 1+ (Negative) H 10/18/20 21:46 Urine Glucose (UA) Norm (Normal) 10/18/20 21:46 Urine Ketones 1+ (Negative) H 10/18/20 21:46 Urine Blood 3+ (Negative) H 10/18/20 21:46 Urine Nitrate Negative (Negative) 10/18/20 21:46 Urine Bilirubin Neg (Negative) 10/18/20 21:46 Urine Urobilinogen Norm mg/dL (Negative) 10/18/20 21:46 Ur Leukocyte Esterase Negative (Negative) 10/18/20 21:46 Urine RBC 0-4 /hpf (0-2) H 10/18/20 21:46 Urine WBC 0-4 /hpf (0-5) H 10/18/20 21:46 Ur Squamous Epith Cells 0-4 /hpf (0-5) H 10/18/20 21:46 Amorphous Sediment Not Reportable 10/18/20 21:46 Urine Bacteria Trace /hpf (NONE) 10/18/20 21:46 Urine Mucus Trace /hpf 10/18/20 21:46 Urine Sperm 1+ /hpf 10/18/20 21:46 Salicylates Cancelled 10/18/20 20:10 Urine Opiates Screen Negative ng/mL (Negative) 10/18/20 21:46 Acetaminophen Cancelled 10/18/20 20:10 Ur Barbiturates Screen Negative ng/mL (Negative) 10/18/20 21:46 Valproic Acid 2.8 ug/mL (50-100) L 10/18/20 20:42 Ur Phencyclidine Scrn Negative ng/mL (Negative) 10/18/20 21:46 Ur Amphetamines Screen Positive ng/mL (Negative) H 10/18/20 21:46 U Benzodiazepines Scrn Negative ng/mL (Negative) 10/18/20 21:46 Urine Cocaine Screen Negative ng/mL (Negative) 10/18/20 21:46 U Marijuana (THC) Screen Positive ng/mL (Negative) H 10/18/20 21:46 Ethyl Alcohol < 10 mg/dL (0-10) 10/18/20 20:[address] 10/18/20 19:30 IMPRESSION: No acute intracranial abnormality. Radiation Dose CTDIVOL = (mGy): DLP = 894.4 (mGy-cm) Chest X-Ray 10/18/20 21:00 IMPRESSION: Endotracheal tube has been retracted now lying in satisfactory position tip above the argenis. A&P Assessment and plan (1) Acute drug intoxication with delirium: With significant tachycardia, hypertension, diaphoresis, combative and psychotic behavior. Was at high risk of demise due to cardiovascular strain prior to intubation and more aggressive medical sedation. Status: Acute (2) Endotracheally intubated: Status: Acute (3) Lactic acidosis: Status: Acute (4) Nicotine dependence, cigarettes, uncomplicated: Status: Chronic Additional A&P Information Elevated white blood count Dehydration Hyperglycemia without a history of diabetes Inpatient admission Change sedation to Precedex and Versed, will work on getting off of fentanyl drip as well Routine ventilatory support Monitor mentation closely Watch for any seizures IV fluids with potassium Recheck CK and lactic acid in the morning Banana bag Monitor for evidence of alcohol withdrawal Nicotine patch PPI Get baseline blood cultures and sputum cultures Supportive care otherwise Need to see if we can get clarification of active medication list, verification of past medical history as well as an understanding of events this evening when more alert. No current evidence supports intentional harm. DVT prophylaxis: Lovenox Anticipated Disposition: Home Code Status: Full Attestations Medical Necessity Statement*: Anticipated stay greater than two midnights in a patient with severe agitated delirium due to drug intoxication, likely multiple substances including hallucinogens. Received multiple medications with continued severe clinical symptoms and ultimately was intubated for protection. Plans are as indicated. Coding Level of Care Code Acute Gun Perforator Loader for Boris Jones Diagnoses Acute drug intoxication with delirium F19.921 Endotracheally intubated Z97.8 Lactic acidosis E87.2 Nicotine dependence, cigarettes, uncomplicated F17.210
[2020-10-18 22:28] LABS: Add Urine Microscopic? YES; Bilirubin Urine Neg (Negative); Blood Urine 3+ (Negative); Glucose Urine UA Norm (Normal); Ketones Urine 1+ (Negative); Leukocyte Esterase Urine Negative (Negative); Nitrate Urine Negative (Negative); Protein Urine 1+ (Negative); Specific Gravity, Urine 1.025 (1.005-1.030); Urine Appearance Clear (CLEAR); Urine Color Yellow (Yellow); Urobilinogen Urine Norm (Negative); pH Urine 5 (5-7)
--- NOTE | 2020-10-18 22:35 | PC.NURSE ---
received verbal order from Dr. Harman to override Versed 4 mg for patient
[2020-10-18 22:37] LABS: Add Urine Culture? No; Bacteria Urine TRACE /hpf; Mucus Urine TRACE /hpf; RBC Urine 0-4 /hpf (0-2); Sperm Urine 1+ /hpf; Squamous Epithelial Cell Urine 0-4 /hpf (0-5); WBC Urine 0-4 /hpf (0-5)
[2020-10-18 22:38] LABS: Amphetamines Screen Urine Positive (Negative); Barbiturates Screen Urine Negative (Negative); Benzodiazepines Screen Urine Negative (Negative); Cocaine Screen Urine Negative (Negative); Opiate Screen Urine Negative (Negative); PCP Screen Urine Negative (Negative); THC Screen Urine Positive (Negative)
[2020-10-18] MEDS: propofol 1,000 MG/100 ML INJ 35 MG (22:49)
[2020-10-18] MEDS: midazolam 1 mg/mL INJ 2 mL 4 MG IVP (22:49)
[2020-10-18 22:56] LABS: Valproic Acid Level 2.8 ug/mL (50-100)
[2020-10-18] MEDS: folic acid 1 MG, multivitamin inj 10 ML, thiamine 100 MG in sodium chloride 0.9% 1,000 ML 252.8 MG IV (23:41)
[2020-10-18] MEDS: enoxaparin 40 mg/0.4 mL Syringe SUBCUT (23:41)
[2020-10-18] MEDS: sodium chlor 0.9% + KCl 20 mEq 20 MEQ/1,000 ML BAG 150 MEQ IV (23:42)
[2020-10-19] VITALS (50 sets, daily range): BP systolic 103–142; BP diastolic 52–105; PULSE 61–109; RESP 12–28; TEMP 36.6; O2SAT 90–100
[2020-10-19 00:45] LABS: ABG PH Result 7.36 (7.35-7.45); Arterial Blood Gas Hematocrit 45.2 % (42-52); Base Excess ABG -2.2 mmol/L (-2.0-2.0); Blood Gas Sample Type Arterial; HCO3 ABG 23.2 mmol/L (22-26)
[2020-10-19 00:46] LABS: Blood Gas Sample Site Brachial, right; Oxygen Device VENT
[2020-10-19] MEDS: dexmedetomidine 400 MCG in sodium chloride 0.9% (100 ml) 100 ML IV (01:15)
--- NOTE | 2020-10-19 01:51 | PC.NURSE ---
Addendum entered by Farhat Vargas RN 10/19/20 06:09: Richard present upon admission to unit Original Note: Dr. Gauthier at bedside, gave v.o. to cancel the OG tube order and increased max of versed to 6mg
[2020-10-19] MEDS: nicotine 21 mg Patch 1 PATCH TRANSDERMA ×2 (02:19→08:41)
[2020-10-19 04:43] LABS: Basophils % 0.3 %; Eosinophils # 0.1 10^3/uL (0.0-0.8); Eosinophils % 0.4 %; Hematocrit 41.4 % (42.0-52.0); Hemoglobin 14.1 g/dL (11.7-16.6); Lymphocytes % 15.8 %; Mean Corpuscular HGB Conc 34.1 g/dL (30.0-36.0); Mean Corpuscular Hemoglobin 30.5 pg (28.0-34.0); Mean Corpuscular Volume 89.4 fL (80-94); Mean Platelet Volume 8.7 fL (7.4-10.4); Monocytes # 0.9 10^3/uL (0.2-0.9); Monocytes % 7.4 %; Neutrophils # 9.31 10^3/uL (1.8-7.7); Neutrophils % 75.5 %; Nucleated Red Blood Cells % 0 %; Platelet Count 239 10^3/cmm (130-400); Red Blood Count 4.63 10^6/uL (4.1-5.3); Red Cell Distribution Width 12.1 % (12.1-15.1); White Blood Count 12.3 10^3/uL (4.0-10.0)
[2020-10-19 04:59] LABS: Lactate (Lactic Acid level) 1.2 mmol/L (0.5-2.2)
[2020-10-19 05:02] LABS: Ammonia 20 umol/L (16-60)
[2020-10-19 05:03] LABS: Alanine Aminotransferase 22 U/L (0-41); Albumin Level 4.1 g/dL (3.5-5.2); Alkaline Phosphatase 73 IU/L (40-130); Anion Gap 13.8 (5-19); Aspartate Amino Transferase 26 U/L (0-40); Blood Urea Nitrogen 14 mg/dL (6-20); Calcium 8.4 mg/dL (8.5-10.5); Carbon Dioxide 22 mmol/L (22-29); Chloride 107 mmol/L (98-107); Glomerular Filtration Rate 116.9 mL/min (90-130); Glucose 101 mg/dL (65-115); Magnesium 2.1 mg/dL (1.7-2.3); Osmolality Calculated 289 mOsm/kg (285-295); Potassium 3.8 mmol/L (3.5-5.1); Sodium 139 mmol/L (136-145); Total Bilirubin 0.8 mg/dL (0.15-1.2); Total Protein 6.1 g/dL (6.6-8.7)
[2020-10-19 05:05] LABS: ABG PCO2 36.1 mmHg (35-45); Arterial Blood Gas Hematocrit 43.7 % (42-52); Base Excess ABG -2.1 mmol/L (-2.0-2.0); Blood Gas Sample Type Arterial; HCO3 ABG 22.2 mmol/L (22-26); PO2 ABG 83.3 mmHg (80.0-100.0)
[2020-10-19 05:06] LABS: Blood Gas Sample Site Brachial, right; Oxygen Device VENT
[2020-10-19 05:08] LABS: Creatine Phosphokinase 887 U/L (39-308)
[2020-10-19] MEDS: pantoprazole 40 mg SDV IVP (08:40)
--- NOTE | 2020-10-19 11:10 | PC.PHAR ---
I WAS UNABLE TO SPEAK TO THE PATIENT BECAUSE HE WAS INTUBATED. HIS MED HISTORY WAS THERE, BUT HAS HAD NOT FILLED ANYTHING AT HIS PHARMACY SINCE JUNE. EVERYTHING WAS FILLED FOR 30 DAYS. IF HE IS TAKEN OFF INTUBATION, I WILL CHECK WITH HIM AGAIN THIS AFTERNOON.
--- NOTE | 2020-10-19 11:29 | PC.NURSE ---
extubated and removed de la rosa at this time up in room ice chips given and up in room for lab drawn
[2020-10-19 11:53] LABS: Creatine Phosphokinase 1057 U/L (39-308)
[2020-10-19 15:23] LABS: Creatine Phosphokinase 1504 U/L (39-308)
[2020-10-19 18:36] LABS: Creatine Phosphokinase 1451 U/L (39-308)
--- NOTE | 2020-10-19 19:45 | PC.NURSE ---
DC instructions given to and explained to patient, denied questions and denied need for med prescriptions stating I haven't taken them in months , reported understanding to follow up with Dr. Louis patient's PCP in 4 to 7 days
--- NOTE | 2020-10-19 19:48 | PM.DCS ---
Discharge Providers Date of Admission: 10/18/20 21:22 Date of Discharge: October 19, 2020 Attending Provider at Admission: Charley Harman MD Attending Provider at Discharge: Mac Jean Primary Care Provider: Cody Louis DO Diagnoses at Discharge Discharge Diagnosis (1) Acute drug intoxication with delirium: Status: Acute (2) Endotracheally intubated: Status: Acute (3) Lactic acidosis: Status: Acute (4) Nicotine dependence, cigarettes, uncomplicated: Status: Chronic Permanent problem details: smoked since age 10 Reason for Visit Reason for Visit: AMS, Combative Hospital Course Hospital Course 25-year-old gentleman was admitted for assessment management due to acute encephalopathy with agitated delirium, acute drug intoxication, very confused, combative, with hallucinations, screaming constantly, requiring multiple doses of antipsychotic, IV sedation, intubation. Breathing was supported by her mechanical ventilation, was continued on fentanyl, Precedex drip, peripheral, Versed initially weaned off, and subsequently fentanyl and Precedex weaned off as well. Received IV fluids due to dehydration. Leukocytosis thought to be stress related. Chest x-ray without suggestion of pneumonia. This morning he woke up, alert, on minimal ventilatory support, extubated successfully. With noted rising creatine kinase which was trended over several levels with plateauing and decrease of the levels. Levels noted below threshold of pigment renal injury. He denied any self-harm or suicidal intention to his actions. He does state that he has been abusing alcohol and drugs for some time. He was provided with resources to help him with rehabilitation. Encouraged to avoid drug use, encouraged on alcohol cessation with discussion of risks with continued use. He is encouraged to follow-up with behavioral health care due to depression. He states that he would seek help in case of thoughts of self-harm or suicidal ideation. Denies any such thoughts at this time. She otherwise has eaten well, walked around in the ICU. Saturations in high 90s on room air. Feeling much better. He feels ready to return home. He is encouraged to quit smoking. He is asked to follow-up with his primary care provider for reassessment of his condition, any additional assistance and recheck of renal function. His mother will be picking him up to give him a ride from the hospital. Physical Exam Const: COMMON NORMALS: no acute distress and patient oriented x3 OTHER: Denies any complaints apart from his leg muscles hurting. He feels regretful about his actions last night about taking drugs. HENMT: COMMON NORMALS: oropharynx normal Neck/C-Spine: COMMON NORMALS: no JVD Resp: COMMON NORMALS: normal respiratory effort and clear to auscultation bilaterally AUSCULTATION: clear to auscultation bilaterally Cardio: COMMON NORMALS: no JVD, regular rhythm, S1 normal heart sound present, S2 normal heart sound present and No murmurs present (Cardio) RHYTHM: regular rhythm HEART SOUNDS: S1 normal heart sound present and S2 normal heart sound present GI: COMMON NORMALS: Normal to inspection, nondistended, normoactive bowel sounds present, Soft to palpation and non-tender PALPATION: Yes Soft to palpation Extremity: COMMON NORMALS: no joint enlargement and no pedal edema Neuro: COMMON NORMALS: patient oriented x3 and moves all extremities Skin: COMMON NORMALS: no rashes or lesions noted GENERAL SKIN EXAM: no rashes or lesions noted Urinary Catheter Management^: Nix: Cath Placed During This Visit: yes, but has since been removed by the nurse Reason for Continuing Indwelling Catheter: Accurate Measurement of Urinary Output in Critically Ill Patients Date Urinary Catheter Removed: 10/19/20 Time Urinary Catheter Discontinued: 11:16 Discharge Data Data Completed and Pending: Completed Studies During Hospitalization Category Date Time Status CT head wo con* [id number] Urgent Cat Scan 10/18/20 19:30 Completed XR chest 1V lata ble [id number] Stat Exams 10/18/20 21:00 Completed XR chest 1V lata ble [id number] Urgent Exams 10/18/20 19:30 Completed Pending at discharge Category Date Time Status Basic Metabolic P doug AM LABS Lab 10/20/20 04:00 Ordered Blood Culture Rou polly Lab 10/18/20 22:47 Results Creatine Phosphok inase AM LABS Lab 10/20/20 04:00 Ordered Gram Stain Stat Lab 10/18/20 23:[address] at Lab 10/18/20 23:22 Results Labs from last 24 hours 10/19/20 10/19/20 10/19/20 18:06 14:50 11:21 WBC RBC Hgb Hct MCV MCH MCHC RDW Plt Count MPV Neut % (Auto) Lymph % (Auto) [place] % (Auto) Eos % (Auto) Baso % (Auto) Neut # (Auto) Lymph # (Auto) [place] # (Auto) Eos # (Auto) Baso # (Auto) Nucleated RBC % (a uto) Nucleated RBCs # Specimen Type Sample Site ABG pH ABG pCO2 ABG pO2 ABG HCO3 ABG Base Excess Woo Test Hematocrit Hgb O2 Saturation Carboxyhemoglobin Methemoglobin Total Hemoglobin O2 Delivery Device Mechanical Rate FiO2 Tidal Volume PEEP Biodiesel Production Associate ID Sodium Potassium Chloride Carbon Dioxide Anion Gap BUN Creatinine GFR Calculation Glucose Calculated Osmolal ity Lactate Calcium Magnesium Total Bilirubin AST ALT Alkaline Phosphata se Ammonia Creatine Kinase 1451 H* 1504 H* 1057 H* Total Protein Albumin Globulin Urine Color Urine Appearance Urine pH Ur Specific Gravit y Urine Protein Urine Glucose (UA) Urine Ketones Urine Blood Urine Nitrate Urine Bilirubin Urine Urobilinogen Ur Leukocyte Suzanne ase Urine RBC Urine WBC Ur Squamous Epith Cells Amorphous Sediment Urine Bacteria Urine Mucus Urine Sperm Salicylates Urine Opiates Scre en Acetaminophen Ur Barbiturates Sc reen Valproic Acid Ur Phencyclidine S crn Ur Amphetamines Sc reen U Benzodiazepines Scrn Urine Cocaine Scre en U Marijuana (THC) Screen Ethyl Alcohol 10/19/20 10/19/20 10/19/20 05:04 04:28 04:28 WBC RBC Hgb Hct MCV MCH MCHC RDW Plt Count MPV Neut % (Auto) Lymph % (Auto) [place] % (Auto) Eos % (Auto) Baso % (Auto) Neut # (Auto) Lymph # (Auto) [place] # (Auto) Eos # (Auto) Baso # (Auto) Nucleated RBC % (a uto) Nucleated RBCs # Specimen Type Arterial Sample Site Brachial, right ABG pH 7.40 ABG pCO2 36.1 ABG pO2 83.3 ABG HCO3 22.2 ABG Base Excess -2.1 L Woo Test N/a Hematocrit 43.7 Hgb O2 Saturation Carboxyhemoglobin Methemoglobin Total Hemoglobin O2 Delivery Device Vent Mechanical Rate 18.0 FiO2 21.0 Tidal Volume 0.50 PEEP 6.0 Biodiesel Production Associate ID Hinja Sodium Potassium Chloride Carbon Dioxide Anion Gap BUN Creatinine GFR Calculation Glucose Calculated Osmolal ity Lactate 1.2 Calcium Magnesium Total Bilirubin AST ALT Alkaline Phosphata se Ammonia 20 Creatine Kinase Total Protein Albumin Globulin Urine Color Urine Appearance Urine pH Ur Specific Gravit y Urine Protein Urine Glucose (UA) Urine Ketones Urine Blood Urine Nitrate Urine Bilirubin Urine Urobilinogen Ur Leukocyte Suzanne ase Urine RBC Urine WBC Ur Squamous Epith Cells Amorphous Sediment Urine Bacteria Urine Mucus Urine Sperm Salicylates Urine Opiates Scre en Acetaminophen Ur Barbiturates Sc reen Valproic Acid Ur Phencyclidine S crn Ur Amphetamines Sc reen U Benzodiazepines Scrn Urine Cocaine Scre en U Marijuana (THC) Screen Ethyl Alcohol 10/19/20 10/19/20 10/19/20 04:28 04:28 00:40 WBC 12.3 H RBC 4.63 Hgb 14.1 Hct 41.4 L MCV 89.4 MCH 30.5 MCHC 34.1 D RDW 12.1 Plt Count 239 MPV 8.7 Neut % (Auto) 75.5 Lymph % (Auto) 15.8 [place] % (Auto) 7.4 Eos % (Auto) 0.4 Baso % (Auto) 0.3 Neut # (Auto) 9.31 H Lymph # (Auto) 2.0 [place] # (Auto) 0.9 Eos # (Auto) 0.1 Baso # (Auto) 0.0 Nucleated RBC % (a uto) 0 Nucleated RBCs # 0.0 Specimen Type Arterial Sample Site Brachial, right ABG pH 7.36 ABG pCO2 41.0 ABG pO2 118.0 H ABG HCO3 23.2 ABG Base Excess -2.2 L Woo Test N/a Hematocrit 45.2 Hgb O2 Saturation Carboxyhemoglobin Methemoglobin Total Hemoglobin O2 Delivery Device Vent Mechanical Rate 18.0 FiO2 45.0 Tidal Volume 0.50 PEEP 6.0 Biodiesel Production Associate ID Hinja Sodium 139 Potassium 3.8 Chloride 107 Carbon Dioxide 22 Anion Gap 13.8 BUN 14 Creatinine 0.8 GFR Calculation 116.9 Glucose 101 Calculated Osmolal ity 289 Lactate Calcium 8.4 L Magnesium 2.1 Total Bilirubin 0.8 AST 26 ALT 22 Alkaline Phosphata se 73 Ammonia Creatine Kinase 887 H* D Total Protein 6.1 L D Albumin 4.1 Globulin 2.0 Urine Color Urine Appearance Urine pH Ur Specific Gravit y Urine Protein Urine Glucose (UA) Urine Ketones Urine Blood Urine Nitrate Urine Bilirubin Urine Urobilinogen Ur Leukocyte Suzanne ase Urine RBC Urine WBC Ur Squamous Epith Cells Amorphous Sediment Urine Bacteria Urine Mucus Urine Sperm Salicylates Urine Opiates Scre en Acetaminophen Ur Barbiturates Sc reen Valproic Acid Ur Phencyclidine S crn Ur Amphetamines Sc reen U Benzodiazepines Scrn Urine Cocaine Scre en U Marijuana (THC) Screen Ethyl Alcohol 10/18/20 10/18/20 10/18/20 21:46 21:46 21:44 WBC RBC Hgb Hct MCV MCH MCHC RDW Plt Count MPV Neut % (Auto) Lymph % (Auto) [place] % (Auto) Eos % (Auto) Baso % (Auto) Neut # (Auto) Lymph # (Auto) [place] # (Auto) Eos # (Auto) Baso # (Auto) Nucleated RBC % (a uto) Nucleated RBCs # Specimen Type Arterial Sample Site Brachial, left ABG pH 7.30 L ABG pCO2 47.5 H ABG pO2 159.0 H ABG HCO3 23.3 ABG Base Excess -3.5 L Woo Test N/a Hematocrit 46.9 Hgb O2 Saturation 97.5 Carboxyhemoglobin 0.8 Methemoglobin 0.9 Total Hemoglobin 15.3 O2 Delivery Device Vent Mechanical Rate FiO2 60.0 Tidal Volume 0.50 PEEP 6.0 Biodiesel Production Associate ID Amh Sodium Potassium Chloride Carbon Dioxide Anion Gap BUN Creatinine GFR Calculation Glucose Calculated Osmolal ity Lactate Calcium Magnesium Total Bilirubin AST ALT Alkaline Phosphata se Ammonia Creatine Kinase Total Protein Albumin Globulin Urine Color Yellow Urine Appearance Clear Urine pH 5 Ur Specific Gravit y 1.025 Urine Protein 1+ H Urine Glucose (UA) Norm Urine Ketones 1+ H Urine Blood 3+ H Urine Nitrate Negative Urine Bilirubin Neg Urine Urobilinogen Norm Ur Leukocyte Suzanne ase Negative Urine RBC 0-4 H Urine WBC 0-4 H Ur Squamous Epith Cells 0-4 H Amorphous Sediment Not Reportable Urine Bacteria Trace Urine Mucus Trace Urine Sperm 1+ Salicylates Urine Opiates Scre en Negative Acetaminophen Ur Barbiturates Sc reen Negative Valproic Acid Ur Phencyclidine S crn Negative Ur Amphetamines Sc reen Positive H U Benzodiazepines Scrn Negative Urine Cocaine Scre en Negative U Marijuana (THC) Screen Positive H Ethyl Alcohol 10/18/20 10/18/20 10/18/20 20:42 20:42 20:10 WBC RBC Hgb Hct MCV MCH MCHC RDW Plt Count MPV Neut % (Auto) Lymph % (Auto) [place] % (Auto) Eos % (Auto) Baso % (Auto) Neut # (Auto) Lymph # (Auto) [place] # (Auto) Eos # (Auto) Baso # (Auto) Nucleated RBC % (a uto) Nucleated RBCs # Specimen Type Sample Site ABG pH ABG pCO2 ABG pO2 ABG HCO3 ABG Base Excess Woo Test Hematocrit Hgb O2 Saturation Carboxyhemoglobin Methemoglobin Total Hemoglobin O2 Delivery Device Mechanical Rate FiO2 Tidal Volume PEEP Biodiesel Production Associate ID Sodium 137 Cancelled Potassium 3.8 Cancelled Chloride 99 Cancelled Carbon Dioxide 17 L Cancelled Anion Gap 24.8 H Cancelled BUN 16 Cancelled Creatinine 1.1 Cancelled GFR Calculation 80.9 L Cancelled Glucose 163 H Cancelled Calculated Osmolal ity 289 Cancelled Lactate 7.4 H* Calcium 9.5 Cancelled Magnesium Total Bilirubin 0.4 Cancelled AST 26 Cancelled ALT 29 Cancelled Alkaline Phosphata se 88 Cancelled Ammonia Creatine Kinase 289 Cancelled Total Protein 8.0 Cancelled Albumin 5.0 Cancelled Globulin 3.0 Cancelled Urine Color Urine Appearance Urine pH Ur Specific Gravit y Urine Protein Urine Glucose (UA) Urine Ketones Urine Blood Urine Nitrate Urine Bilirubin Urine Urobilinogen Ur Leukocyte Suzanne ase Urine RBC Urine WBC Ur Squamous Epith Cells Amorphous Sediment Urine Bacteria Urine Mucus Urine Sperm Salicylates Cancelled Urine Opiates Scre en Acetaminophen Cancelled Ur Barbiturates Sc reen Valproic Acid 2.8 L Cancelled Ur Phencyclidine S crn Ur Amphetamines Sc reen U Benzodiazepines Scrn Urine Cocaine Scre en U Marijuana (THC) Screen Ethyl Alcohol < 10 Cancelled 10/18/20 20:10 WBC 16.0 H RBC 5.78 H Hgb 17.2 H Hct 54.0 H MCV 93.4 MCH 29.8 MCHC 31.9 RDW 11.9 L Plt Count 390 MPV 8.7 Neut % (Auto) 68.0 Lymph % (Auto) 24.4 [place] % (Auto) 5.7 Eos % (Auto) 0.6 Baso % (Auto) 0.5 Neut # (Auto) 10.90 H Lymph # (Auto) 3.9 [place] # (Auto) 0.9 Eos # (Auto) 0.1 Baso # (Auto) 0.1 Nucleated RBC % (a uto) 0 Nucleated RBCs # 0.0 Specimen Type Sample Site ABG pH ABG pCO2 ABG pO2 ABG HCO3 ABG Base Excess Woo Test Hematocrit Hgb O2 Saturation Carboxyhemoglobin Methemoglobin Total Hemoglobin O2 Delivery Device Mechanical Rate FiO2 Tidal Volume PEEP Biodiesel Production Associate ID Sodium Potassium Chloride Carbon Dioxide Anion Gap BUN Creatinine GFR Calculation Glucose Calculated Osmolal ity Lactate Calcium Magnesium Total Bilirubin AST ALT Alkaline Phosphata se Ammonia Creatine Kinase Total Protein Albumin Globulin Urine Color Urine Appearance Urine pH Ur Specific Gravit y Urine Protein Urine Glucose (UA) Urine Ketones Urine Blood Urine Nitrate Urine Bilirubin Urine Urobilinogen Ur Leukocyte Suzanne ase Urine RBC Urine WBC Ur Squamous Epith Cells Amorphous Sediment Urine Bacteria Urine Mucus Urine Sperm Salicylates Urine Opiates Scre en Acetaminophen Ur Barbiturates Sc reen Valproic Acid Ur Phencyclidine S crn Ur Amphetamines Sc reen U Benzodiazepines Scrn Urine Cocaine Scre en U Marijuana (THC) Screen Ethyl Alcohol Vitals: Last Vital Signs Temp 98 F 10/19/20 16:00 Pulse 100 10/19/20 19:38 Resp 15 10/19/20 19:38 BP 118/75 10/19/20 19:38 Pulse Ox 99 10/19/20 19:38 Discharge Plan Discharge Patient Disposition: Home Condition: Stable Prescriptions: Continued prazosin 1 mg capsule 3 mg PO BID RF: 0 divalproex [Depakote] 125 mg tablet,delayed release (DR/EC) 125 mg PO DAILY RF: 0 Discontinued bupropion HCl [Wellbutrin SR] 100 mg tablet sustained-release 12 hr 100 mg PO BID RF: 0 Discharge Orders: Discharge Order (Routine); Ordered 10/19/20 Ordered By: Mac Jean Referrals: Cody Louis DO [Primary Care Provider] - 4-7 days Discharge Diet: Regular Discharge Activity: Increase activity as tolerated Patient Instructions: Rhabdomyolysis (GEN), Acute Delirium (GEN) Activity Restrictions/Additional Instructions: Please avoid any drug use due to risk of life-threatening complications, and discontinue alcohol due to risk of acute liver injury, but also other complications like gastritis, GI bleeding, as well as progressive liver damage with fibrosis and/or cirrhosis, dementia. Risk of alcohol withdrawal. Please stay in contact with your family for support, use provided resources to seek rehabilitation from alcohol, drug use. Please follow up with behavioral healthcare regarding depression. In case you experience worsening depression or any thoughts of harming yourself or ending your life, please call for help immediately. Call [phone] Sudhae follow up with your primary doctor. Due to sustained muscle injury from drug overdose, putting her kidneys at risk, please have your primary doctor check your kidney function at follow-up to make sure your kidneys are doing okay. Discharge Attestations Time Spent in Discharge Care*: greater than 30 min Quality Metrics Clinical Quality Measures During this hospital stay, did patient experience: None Coding Level of Care Code Acute Chg FW DC note Diagnoses Acute drug intoxication with delirium F19.921 Endotracheally intubated Z97.8 Lactic acidosis E87.2 Nicotine dependence, cigarettes, uncomplicated F17.210
--- NOTE | 2020-10-19 19:59 | PC.NURSE ---
Patient assisted out of facility via wc, AO x4, denied any complaints, dc packet in hand, picked up by friend
--- NOTE | 2020-10-21 17:37 | PC.RESP ---
Smoking Cessation information sent to patient.
== END 2020-10-19 19:55 | disposition home or self-care (01) | DRG 897 ==
LOC: ER 20:00 → ICU 21:29
PROVIDERS: Family Medicine; Admitting Provider Hospitalist; Emergency Provider Emergency Medicine; PCP Electrodiagnostic Medicine; Visit Provider Internal Medicine
DX: F15.921 Other stimulant use, unspecified with intoxication delirium (principal); E87.2 Acidosis; T43.621A Poisoning by amphetamines, accidental (unintentional), initial encounter; F12.90 Cannabis use, unspecified, uncomplicated; F10.10 Alcohol abuse, uncomplicated; F17.210 Nicotine dependence, cigarettes, uncomplicated; I10 Essential (primary) hypertension; E86.0 Dehydration; R73.9 Hyperglycemia, unspecified
CPT/HCPCS: 31500; 36415; 36600; 70450; 71045; 80053; 80164; 80306; 80307; 81001; 82140; 82550; 82803; 82805; 83605; 83735; 85025; 87040; 87070; 87205; 93005; 94002; 94003; 94664; 94799; 96365; 96366; 96367; 96372; 99291; C9113; J1650; J2250; J2704; J3010; J3411; J3486; J3490; J7030

== ENCOUNTER 2021-06-23 11:51 | Emergency (ER) | payer MEDICAID, SELFPAY ==
[2021-06-23 12:32] VITALS: BP 130/79; PULSE 112; RESP 18; TEMP 36.3; O2SAT 96; BMI 24.4
[2021-06-23 13:05] VITALS: BP 130/79; PULSE 112; RESP 18; TEMP 36.3; O2SAT 96
--- NOTE | 2021-06-23 13:36 | XRR_ITS ---
PROCEDURE INFORMATION: Exam: XR Right Elbow Exam date and time: 06/23/2021 1:36 PM Age: 26 years old Clinical indication: Pain; Elbow; Right; Additional info: Trauma/injury/infection TECHNIQUE: Imaging protocol: XR Right elbow. Views: 3 or more views. COMPARISON: No relevant prior studies available. FINDINGS: Bones/joints: Osseous structures are intact. Negative for fracture or other osseous abnormality. Soft tissues: Soft tissue swelling noted around the elbow. XR/XR elbow RT min 3V* [id number] IMPRESSION: No acute osseous abnormalities of the right elbow.
--- NOTE | 2021-06-23 13:36 | USCV_ITS ---
Milind Lantigua Age: 26 Gender: M : 1995 Exam Date: 06/23/2021 14:24 Ordering Phys: Tamraa Jiménez Technologist: Exam Location: [facility] [place] Indication: RT ARM PAIN HISTORY: Upper extremity swelling. PROCEDURES: Venous duplex imaging was performed in only the right upper extremity. The following venous structures were evaluated: internal jugular vein, subclavian vein, axillary vein, and brachial veins. In addition, the basilic vein, cephalic vein, radial vein, and ulnar vein. FINDINGS: No evidence of deep vein thrombosis or superficial thrombophlebitis in the right upper extremity. CONCLUSIONS No right upper extremity DVT. Dr. Yesenia Schulte DO (Electronically Signed) Final Date: 23 June 2021 16:10 S
--- NOTE | 2021-06-23 13:36 | W.ED.EXTPRO ---
HPI - Extremity Problem General: Chief complaint: Extremity Injury, Upper Stated complaint: rt arm swollen and possible infection Time Seen by Provider: 06/23/21 12:50 Source: patient Mode of arrival: ambulatory Limitations: no limitations History of Present Illness: Patient is a 26-year-old male who presents to ED today with complaint of right elbow swelling and redness. Patient states he fell on the elbow a few days ago and cut it/scratched it. States since that time it has swollen and become red. He has noticed a small amount of drainage from the elbow. He has also noticed swelling into his forearm-questionable IV drug use (?) Patient seems to avoid this question when asked. MD Complaint: extremity swelling, joint swelling and joint pain Onset (ago): day(s) Pain Consistency: constant Location: right and upper extremity Associated symptoms: Deny chest pain or fever(s) Review of Systems Const: Denies: fever(s), chills, body aches, fatigue or malaise Card: Denies: chest pain Resp: Denies: dyspnea GI: Denies: nausea or vomiting Musc: Reports: extremity swelling, joint pain, joint swelling and joint redness; Denies: neck pain, back pain, joint stiffness or limited range of motion Neuro: Denies: numbness in extremities, weakness in extremities or sensory changes PFSH ED PFSH: Medical History Acute drug intoxication with delirium Alcohol abuse History of intravenous drug abuse documented in 2012, methamphetamine Nicotine dependence, cigarettes, uncomplicated smoked since age 10 Surgical History History of adenoidectomy History of tonsillectomy Family History Other Cancer Heart disease Social History Smoking and tobacco status: current every day smoker Alcohol intake: unknown Current gender identity: Male Physical Exam Const: COMMON NORMALS: no acute distress, patient oriented x3, no limitations and alert GENERAL APPEARANCE: cooperative ORIENTATION/CONSCIOUSNESS: Yes awake, Yes oriented to person, Yes oriented to place and Yes oriented to time Resp: COMMON NORMALS: normal respiratory effort and clear to auscultation bilaterally AUSCULTATION: clear to auscultation bilaterally Cardio: COMMON NORMALS: regular rate and regular rhythm RATE: regular rate RHYTHM: regular rhythm OTHER: triage vitals noted patient to be tachycardic at 112 but this has resolved during my exam Extremity: GENERAL: Yes normal exam except as noted RIGHT UPPER EXTREMITY: Yes elbow joint (see below) Right elbow: Yes ROM (normal) and Yes neurovascular exam (normal) OTHER: pt has swelling and mild-mod erythema/warmth to R olecranon bursa; there is a small central abrasion that is draining yellow clear fluid; pt maintains full ROM of elbow joint; he has some generalized swelling to dorsal forearm Neuro: COMMON NORMALS: patient oriented x3, moves all extremities, no focal motor deficits and no sensory deficits noted SENSORIUM/ORIENTATION: Yes alert, Yes oriented to person, Yes oriented to place and Yes oriented to time Course Consultations: Consultation #1: Dr. Tolbert-will follow up with patient in office Vital Signs: Vital signs: Vital Signs Temperature 97.4 F L 06/23/21 13:05 Pulse Rate 112 H 06/23/21 13:05 Respiratory Rate 18 06/23/21 13:05 Blood Pressure 130/79 06/23/21 13:05 Pulse Oximetry 96 06/23/21 13:05 MDM - Extremity (Nontraumatic) Medical Decision Making Patient here clinically with a septic olecranon bursitis. XR is negative for fracture or retained foreign bodies. US ordered secondary to generalized forearm swelling-this is negative for DVT. Needle aspiration performed on bursa with synovial analysis and culture/GS ordered. Synovial WBC over 44,000. Patient maintains full range of motion of his elbow joint. I have no concerns for septic arthritis. Patient was initially triaged as tachycardic at 112 but this is resolved during my exam. He is not febrile. He has no systemic signs of toxicity, rapid progression of erythema, or inability to tolerate oral therapy therefore patient does not require IV antibiotics/admission at this time. He was given IM Ancef and will DC on Bactrim. I spoke to Dr. Tolbert who agreed with plan and would see in office. Lab Data Radiology Impressions Elbow X-Ray 06/23/21 13:36 IMPRESSION: No acute osseous abnormalities of the right elbow. Laboratory Results Synovial Color Slight pink (PALE YELLOW) 06/23/21 15:10 Synovial Appearance Cloudy (CLEAR) 06/23/21 15:10 Synovial WBC 80676 /uL (0-150) H 06/23/21 15:10 Synovial RBC 13 10^3/uL (0-0) H 06/23/21 15:10 Synovial Mononuclear 1.150 10^3/uL 06/23/21 15:10 Synov Polynuclear WBCs 43.638 10^3/uL 06/23/21 15:10 Synovial Other Cells Not Reportable 06/23/21 15:10 Synovial Polynuclear % 97.500 % 06/23/21 15:10 Synovial Mononuclear % 2.500 % 06/23/21 15:10 Path Cons w/Slide Yes 06/23/21 15:10 Discharge Plan Discharge Patient Disposition: Home Clinical Impression: Septic olecranon bursitis of right elbow Condition: Stable Prescriptions: New Bactrim DS 800-160 mg tablet 2 tab PO BID 7 Days Qty: 28 0RF No Action valacyclovir 1 gram tablet 1,000 mg PO TID 7 Days Qty: 21 0RF clindamycin HCl 300 mg capsule 300 mg PO BID 7 Days Qty: 14 0RF Discharge Orders: Discharge ED (Routine); Ordered 06/23/21 Ordered By: Tamara Jiménez Referrals: Cody Louis DO [Primary Care Provider] - Activity Restrictions/Additional Instructions: As discussed fill and start your antibiotics immediately. Continue the ALMA wrap and bandage placed today but continue to monitor for worsening redness, warmth, and swelling. Please seek medical reevaluation of these occur. You also need to be seen for fevers greater than 100.4. As we discussed case management should contact you at the number provided to set you up with orthopedic follow-up appointment in case symptoms do not improve on antibiotic therapy. Coding Level of Care Code ED [employer] Mechanic for Chg Fwd Exam Expanded Problem Focused
[2021-06-23] MEDS: ceFAZolin 1,000 mg SDV 1000 MG IM (13:55)
[2021-06-23 15:12] LABS: Appearance Synovial Fluid CLOUDY (CLEAR); PATH Referal YES
[2021-06-23 15:13] LABS: RBC Synovial Fluid 13 10^3/uL (0-0); Synovial Fluid Polynuclear # 43.638 10^3/uL
[2021-06-23 15:18] LABS: Color Synovial Fluid SLIGHT PINK (PALE YELLOW)
--- NOTE | 2021-06-24 09:30 | DCPLANNER ---
Addendum entered by Aster Garg 06/27/21 14:20: Patient had a follow up appointment scheduled for 06.26.[address] Tolbert at ortho - patient did attend appointment. Original Note: information technology account manager had message to schedule a follow up appointment for patient with ortho. information technology account manager called the ortho clinic, spoke with Carolyn, gave clinic patients information. information technology account manager was told that patients information would be printed and reviewed. Clinic will call patient with appointment information.
== END 2021-06-23 15:18 | disposition home or self-care (01) ==
PROVIDERS: Emergency Provider Physician Assistant; PCP Electrodiagnostic Medicine
DX: M71.121 Other infective bursitis, right elbow (principal); F17.210 Nicotine dependence, cigarettes, uncomplicated
CPT/HCPCS: 73080; 80500; 87070; 87075; 87077; 87186; 87205; 89050; 93971; 96372; 99283; J0690

== ENCOUNTER → 2021-06-26 15:37 | Outpatient (BNVA) | payer MEDICAID, SELFPAY | PROVIDERS: PCP Electrodiagnostic Medicine; Referring Provider Physician Assistant; Visit Provider Orthopaedic Surgery | DX: M71.129 Other infective bursitis, unspecified elbow (principal); M71.121 Other infective bursitis, right elbow; Z20.822 Contact with and (suspected) exposure to COVID-19 | CPT/HCPCS: 87635 ==

== ENCOUNTER 2021-06-27 08:25 | Day surgery (SDC) | payer MEDICAID, SELFPAY ==
[2021-06-27 08:38] VITALS: BP 132/87; PULSE 117; RESP 18; TEMP 36.5; O2SAT 98
[2021-06-27 08:41] VITALS: BMI 25.0
--- NOTE | 2021-06-27 08:46 | P.ANESASSM_ITS ---
Pre-Anesthetic Assessment Height/Weight: Height 1.85 m Temp Pulse Resp BP Pulse Ox 97.7 F 117 H 18 132/87 98 06/27/21 08:38 06/27/21 08:38 06/27/21 08:38 06/27/21 08:38 06/27/21 08:38 Preop Diagnosis: septic right olecranon bursitis Operation Date: 06/27/21 08:40 Proposed Procedures p Bursectomy right [id number] other infective bursitis(Right) - Ruy Tolbert, DO Was Beta Jaspal taken within 24 hours: N/A Was Clonidine taken within 24 hours: N/A Social Alcohol and Tobacco Active alchohol and methamphetamine use. Last used 06/27/21 @ 0100 Exam alert, oriented x 3, clear to auscultation bilaterally and regular rate & rhythm Airway Submandibular: within normal limits Cervical ROM: within normal limits Mallampati: Class I Dentition: chipped Comments: Comments: Poor dentition Pulmonary None reported CV/HEM None reported None reported Hepatic None reported GI None reported Metabolic None reported Musc/skel None reported Neuropsych None reported Anesthetic Plan ASA status: 3 (26 year old active drug and alcohol user with acute elbow infection w/ concern for rapid evolution if untreated. ) Anesthesia: Anesthesia Evaluation and General Other: We discussed risk and benefits of general anesthesia including PONV, sore throat (sometimes severe), corneal abrasion, positioning and peripheral nerve injuries, life threatening allergic reaction, post operative ICU admission requiring prolonged intubation, stroke, heart attack, , and rare incidences of recall. Patient consents to proceed with general anesthesia. Risk of > 500 ml blood loss (7ml/kg in children): No Medications/Allergies Home Medications Medication Instructions Recorded Confirmed Last Taken Type valacyclovir 1 gram tablet 1,000 mg PO TID 7 Days #21 tab 11/13/20 06/26/21 Unknown Rx clindamycin HCl 300 mg capsule 300 mg PO BID 7 Days #14 cap 01/08/21 06/26/21 Unknown Rx sulfamethoxazole 800 2 tab PO BID 7 Days #28 tab 06/23/21 06/26/21 Unknown Rx mg-trimethoprim 160 mg tablet (Bactrim DS) Allergies Allergy/AdvReac Type Severity Reaction Status Date / Time No Known Allergies Allergy Verified 06/26/21 15:24 [facility] Anesthesia Medical History Acute drug intoxication with delirium Alcohol abuse History of intravenous drug abuse documented in 2012, methamphetamine Nicotine dependence, cigarettes, uncomplicated smoked since age 10 Surgical History History of adenoidectomy History of tonsillectomy Family History Other Cancer Heart disease Social History Smoking and tobacco status: current every day smoker Alcohol intake: unknown Current gender identity: Male Data Anesthesia Cardiac Studies: No Data to Display
--- NOTE | 2021-06-27 09:02 | ECG_ITS ---
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 Measurements Intervals [place] Rate: 92 P: -14 NE: 128 QRS: -16 QRSD: 97 T: -4 QT: 345 QTc: 428 Interpretive Statements SINUS RHYTHM POSSIBLE LEFT VENTRICULAR HYPERTROPHY [VOLTAGE CRITERIA PLUS LAE OR QRS WIDENING] Compared to ECG 10/18/2020 21:19:02 Sinus tachycardia no longer present T-wave abnormality no longer present Electronically Signed On 06-27-2021 15:27:33 FISHER TROLL LINE by Mellisa Da Silva M.D. [id number]
--- NOTE | 2021-06-27 09:08 | W.PM.OPSUD ---
Surgery/Procedure H&P Update DATE OF PROCEDURE: June 27, 2021 DATE H&P PERFORMED: 06/26/21 H&P UPDATE INFORMATION: I have reviewed H&P completed within last 30 days, I have examined patient prior to procedure and No changes to prior documentation PREOP DIAGNOSIS: septic right olecranon bursitis PLANNED PROCEDURE: Operation Date: 06/27/21 08:40 Proposed Procedures p Bursectomy right [id number] other infective bursitis(Right) - Ruy Tolbert DO
[2021-06-27] MEDS: sodium chloride 0.9% 1,000 ML 30 ML IV (09:11)
[2021-06-27] MEDS: vancomycin 1,000 MG SDV 1000 MG XX (09:59)
--- NOTE | 2021-06-27 10:02 | PM.OP ---
Operative Report Date of procedure: June 27, 2021 Pre-op diagnosis: Preop Diagnosis septic right olecranon bursitis Post-op diagnosis: same Procedure done: 1. Bursectomy Irrigation and debridement of right olecrenon bursa Surgeon: Ruy Tolbert Estimated blood loss (mL): 10 Procedure: 1. Bursectomy Irrigation and debridement of right olecrenon bursa Patient is brought to the operative suite. Placed in supine position. After undergoing anesthesia all areas patient well-padded. Patient was prepped and draped normal sterile fashion. Skin incision made over the bursa. The bursa was inflamed once the bursa was identified Metzenbaums scissors were used to work around it to remove the inflamed tissue. Once all the inflamed tissue was removed cultures were sent. Once the culture sent the wound was irrigated with saline and then the wound was closed in layered fashion with 0 Vicryl and nylon suture. Sterile dressings applied an Bernabe wrap strap from the hand up to the mid humerus and patient was transferred to the PACU in stable condition. Wound was debrided down to bone. Bone was scraped with a curette. There was a small 1 cm wound that was draining. Prior to his surgery.
[2021-06-27 10:27] VITALS: BP 142/100; PULSE 96; RESP 11; TEMP 36.7; O2SAT 96
[2021-06-27 10:31] VITALS: BP 148/99; PULSE 94; RESP 19; O2SAT 100
[2021-06-27 10:36] VITALS: BP 133/105; PULSE 95; RESP 20; O2SAT 100
[2021-06-27 10:41] VITALS: BP 133/91; PULSE 96; RESP 20; O2SAT 100
[2021-06-27] MEDS: HYDROcodone-acetaminophen 5-325 mg Tablet 1 TAB PO (11:07)
--- NOTE | 2021-06-27 14:44 | PC.NURSE ---
PT WOKE UP THRASHING WHICH REQUIRED US TO HAVE 7 STAFF MEMBERS TO HOLD HIM ONTO THE BED. HE HAD THRASHED SO MUCH THAT HIS LEGS WERE COMING OFF THE BED. WE WERE ABLE TO SEDATE HIM AND LIFT HIM BACK ONTO THE BED AND TAKE HIM TO RECOVERY.
--- NOTE | 2021-06-27 15:32 | ANE.PACU2 ---
Inpatient post-anesthesia follow up: Airway intact: Yes Vital signs: Temperature 98.1 F Pulse Rate 96 Respiratory Rate 20 Blood Pressure 133/91 Pulse Oximetry 100 Oxygen Delivery Me thod Room Air Oxygen Flow Rate 8 Fraction of Inspir ed Oxygen Hydration adequate: Yes Nausea and vomiting: No Pain level: 4 Mental status: Baseline
== END 2021-06-27 11:30 | disposition home or self-care (01) ==
PROVIDERS: PCP Electrodiagnostic Medicine; Visit Provider Orthopaedic Surgery
PROC: (CPT 24105; principal; 2021-06-27 08:30)
DX: A41.9 Sepsis, unspecified organism (principal); M70.21 Olecranon bursitis, right elbow; F17.210 Nicotine dependence, cigarettes, uncomplicated
CPT/HCPCS: 24105; 87070; 87075; 87176; 87205; 93005; J0330; J0690; J2250; J2370; J2704; J3010; J3370; J3490; J7030

== ENCOUNTER → 2022-07-21 10:19 | Outpatient (BNVA) | payer MEDICAID, SELFPAY | PROVIDERS: PCP Electrodiagnostic Medicine; Visit Provider Emergency Medicine | DX: M54.9 Dorsalgia, unspecified (principal) | CPT/HCPCS: 81000 ==

== ENCOUNTER 2022-09-19 15:55 | Emergency (ER) | payer MEDICAID, SELFPAY ==
[2022-09-19 16:11] VITALS: BP 134/86; PULSE 99; RESP 16; TEMP 36.7; O2SAT 97
--- NOTE | 2022-09-19 16:27 | ED_ITS ---
Documented by User: MAGDALENA Kaur 09/19/22 16:50 HPI - General Adult General: Chief complaint: General Medical Stated complaint: right side of head numb Time Seen by Provider: 09/19/22 16:06 Source: patient Mode of arrival: ambulatory Limitations: no limitations History of Present Illness: Patient is a 27-year-old male who presents to ED today complaining that he is delgado ving some numbness to the right side of his neck and up into his ear and posterior scalp. He does not really seem to be able to give me much of a timeline on when this started but does tell me he believes it started after he after injecting IV fentanyl four days ago. Patient overall seems to be a fairly poor historian and cannot recollect many of the details of why he feels like he . He states he injected IV fentanyl and then felt like his heart stopped. He states when he woke up he noticed hearing loss to the right ear and numbness. He tells me he does not feel right. He states he is having issues with balance however patient was able to ambulate to his room without any diffi culty or assistance. He also tells me he went skating yesterday evening and was really good at it . He is not complaining of tinnitus. He has no headache. No fevers. Patient states he has a longstanding history of IV drug use including fentanyl and methamphetamines. He does not wish any form of treatment or rehab at this time. He states he is not suicidal or homicidal. Reports chronic depression. He does not want any form of psychiatric care or hospitalization at this time. Onset (ago): day(s) Location: head and face Quality: other (numbness) Pain Consistency: constant Relieving factors: none Exacerbating factors: none Associated symptoms: Reports other (hearing loss); Deny chest pain, confusion, dyspnea, headache(s), malaise, nausea, rash or vomiting Treatments prior to arrival: none Review of Systems Const: Denies: fever(s), chills, body aches, fatigue or malaise Eyes: Denies: change in vision, blurry vision, blind spots, photophobia, floaters or seeing flashes ENMT: Reports: change in hearing; Denies: throat pain, odynophagia, ear or mastoid pain, ear discharge, tinnitus, disequilibrium, nasal discharge, nasal congestion, post nasal drip or sinus pain Card: Denies: chest pain Resp: Denies: dyspnea GI: Denies: abdominal pain, nausea or vomiting : Denies: flank pain or dysuria Musc: Denies: neck pain, back pain, extremity pain or joint pain Skin/Breast: Denies: rash Neuro: Denies: headache(s), weakness in extremities, lack of coordination, difficulty walking, frequent falls, vertigo, confusion, Slurred speech present or seizure-like activity PFS ED PFSH: Medical History Acute drug intoxication with delirium Alcohol abuse History of intravenous drug abuse documented in 2012, methamphetamine Nicotine dependence, cigarettes, uncomplicated smoked since age 10 Surgical History History of adenoidectomy History of tonsillectomy Family History Other Cancer Heart disease Social History Smoking and tobacco status: current every day smoker Alcohol intake: unknown Substance/Drug Use: current Current gender identity: Male Physical Exam Const: COMMON NORMALS: no acute distress, patient oriented x3, no limitations, alert and well nourished GENERAL APPEARANCE: cooperative ORIENTATION/CONSCIOUSNESS: Yes awake, Yes oriented to person, Yes oriented to place and Yes oriented to time HENMT: COMMON NORMALS: normocephalic, atraumatic, hearing grossly normal bilaterally, external ears normal, EAC's normal and TM's normal bilaterally HEAD & SCALP: normal to inspection, normocephalic and atraumatic HEAD IMAGES: 1. complains of paresthesias FACE & SINUS: normal facial exam, sinuses nontender and face symmetric; no sinus tenderness, no crepitus, no erythema, no edema and no fluctuance EXTERNAL EAR: Yes external ears normal, Yes external ear abnormal, Yes mastoids normal, Yes mastoid abnormal and Yes no periauricular adenopathy EXTERNAL AUDITORY CANAL: EAC's normal TYMPANIC MEMBRANE: TM's normal bilaterally MOUTH: tongue normal (no deviation) Eye: COMMON NORMALS: Equal, round and reactive pupils present, EOMs intact bilaterally and no scleral icterus GENERAL EYE: appearance normal, both eyes and all related structures and normal light reflex VISUAL MENDOZA: No peripheral vision loss, No central vision loss, No left visual field cut, No right visual field cut, No bitemporal visual field cut, No binasal visual field cut and No visual field cut by quadrant PUPIL: Yes Equal, round and reactive pupils present DIRECT OPHTHALMOSCOPY: Yes normal light reflex Neck/C-Spine: COMMON NORMALS: full ROM, no lymphadenopathy and no meningeal signs GENERAL: Yes normal visual inspection Resp: COMMON NORMALS: normal respiratory effort and clear to auscultation bilaterally AUSCULTATION: clear to auscultation bilaterally Cardio: COMMON NORMALS: regular rate and regular rhythm RATE: regular rate RHYTHM: regular rhythm Back/Pelvis: COMMON NORMALS: thoracic and lumbar spine normal to inspection, no thoracic nor lumbar tenderness and thoraco-lumbar ROM normal Extremity: COMMON NORMALS: normal to inspection GENERAL: Yes normal exam e xcept as noted Neuro: JOSE GUADALUPE COMA SCALE: document GCS findings Elbert coma scale eye opening: Spontaneous Elbert coma scale verbal response: Orientated Elbert coma scale motor response: Obey commands Elbert coma scale total score: 15 COMMON NORMALS: patient oriented x3, CN's II-XII intact bilaterally, moves all e xtremities, no focal motor deficits, no sensory deficits noted and gait normal SENSORIUM/ORIENTATION: Yes alert, Yes oriented to person, Yes oriented to place and Yes oriented to time MENINGEAL SIGNS: Yes no meningeal signs SPEECH: speech normal GAIT: Yes Normal gait present MOTOR EXAM: 5/5 motor strength present throughout Skin: COMMON NORMALS: no rashes or lesions noted GENERAL SKIN EXAM: no rashes or lesions noted Course Vital Signs: Vital signs: Vital Signs Temperature 98.1 F 09/19/22 16:11 Pulse Rate 99 09/19/22 16:11 Respiratory Rate 16 09/19/22 16:11 Blood Pressure 134/86 09/19/22 16:11 Pulse Oximetry 97 09/19/22 16:11 Oxygen Delivery Me thod Room Air 09/19/22 16:[address] [facility] - General Adult Lab Data 09/19/22 16:43 09/19/22 16:43 Laboratory Results WBC 9.5 10^3/uL (4.0-10.0) 09/19/22 16:43 RBC 4.70 10^6/uL (4.1-5.3) 09/19/22 16:43 Hgb 13.7 g/dL (11.7-16.6) 09/19/22 16:43 Hct 41.6 % (42.0-52.0) L 09/19/22 16:43 MCV 88.5 fl (80-94) 09/19/22 16:43 MCH 29.1 pg (28.0-34.0) 09/19/22 16:43 MCHC 32.9 g/dL (30.0-36.0) 09/19/22 16:43 RDW 12.0 % (12.1-15.1) L 09/19/22 16:43 Plt Count 309 10^3/cmm (130-400) 09/19/22 16:43 MPV 8.5 fL (7.4-10.4) 09/19/22 16:43 Neut % (Auto) 68.4 % 09/19/22 16:43 Lymph % (Auto) 21.7 % 09/19/22 16:43 Andrews % (Auto) 6.8 % 09/19/22 16:43 Eos % (Auto) 2.4 % 09/19/22 16:43 Baso % (Auto) 0.4 % 09/19/22 16:43 Neut # (Auto) 6.50 10^3/uL (1.8-7.7) 09/19/22 16:43 Lymph # (Auto) 2.1 10^3/uL (0.8-4.8) 09/19/22 16:43 Andrews # (Auto) 0.7 10^3/uL (0.2-0.9) 09/19/22 16:43 Eos # (Auto) 0.2 10^3/uL (0.0-0.8) 09/19/22 16:43 Baso # (Auto) 0.0 10^3/uL (0.0-0.1) 09/19/22 16:43 Nucleated RBC % (auto) 0 % 09/19/22 16:43 Nucleated RBCs # 0.0 /100WBC 09/19/22 16:43 Sodium 135 mmol/L (136-145) L 09/19/22 16:43 Potassium 3.8 mmol/L (3.5-5.1) 09/19/22 16:43 Chloride 96 mmol/L (98-107) L 09/19/22 16:43 Carbon Dioxide 31 mmol/L (22-29) H 09/19/22 16:43 Anion Gap 11.8 (5-19) 09/19/22 16:43 BUN 11 mg/dL (6-20) 09/19/22 16:43 Creatinine 0.9 mg/dL (0.7-1.2) 09/19/22 16:43 GFR Calculation 100.5 mL/min (90-130) 09/19/22 16:43 Glucose 105 mg/dL (65-115) 09/19/22 16:43 Calculated Osmolality 280 mOsm/kg (285-295) L 09/19/22 16:43 Calcium 9.3 mg/dL (8.5-10.5) 09/19/22 16:43 Total Bilirubin 0.5 mg/dL (0.15-1.2) 09/19/22 16:43 AST 23 U/L (0-40) 09/19/22 16:43 ALT 27 U/L (0-41) 09/19/22 16:43 Alkaline Phosphatase 71 U/L (40-130) 09/19/22 16:43 C-Reactive Protein 6.0 mg/L (0.0-4.9) H 09/19/22 16:43 Total Protein 6.6 g/dL (6.6-8.7) 09/19/22 16:43 Albumin 4.2 g/dL (3.5-5.2) 09/19/22 16:43 Globulin 2.4 g/dL (1.3-4.6) 09/19/22 16:43 Discharge Plan Discharge Patient Disposition: Home Clinical Impression: Substance abuse Unintentional poisoning by opioid Qualifiers: Encounter type: initial encounter Qualified Code(s): T40.2X1A - Poisoning by other opioids, accidental (unintentional), initial encounter Condition: Stable Prescriptions: New naloxone 4 mg/actuation spray,non-aerosol 4 mg intranasal Q2M PRN (Reason: opioid overdose) Qty: 2 0RF Rx Instructions: spray 1 dose into ONE nostril; alternate nostrils w each dose until help arrives No Action tamsulosin [Flomax] 0.4 mg capsule 0.4 mg PO DAILY Qty: 14 0RF sulfamethoxazole-trimethoprim [Bactrim DS] 800-160 mg tablet 1 tab PO BID 7 Days Qty: 14 0RF Discharge Orders: Discharge ED (Routine); Ordered 09/19/22 Ordered By: Gamaliel Benjamin Referrals: Cody Louis DO [Primary Care Provider] - Discharge Diet: Usual diet Discharge Activity: Increase activity as tolerated Patient Instructions: Opioid Safety, Pain Management Activity Restrictions/Additional Instructions: Home and rest. Drink plenty of water and fluids. Healthy diet and activity. Follow-up with primary care for further instructions. Return to ED for new concerns. Sign Out Sign Out Data: Patient Sign Out occurred on 09/19/22 at 17:35. Patient's care was discussed, and care was transferred from to Gamaliel Benjamin. Coding Level of Care Code ED Component Design Engineer for Chg Fwd Documented by User: VAUGHN Allan 09/19/22 17:43 HPI - General Adult General: Chief complaint: General Medical Stated complaint: right side of head numb Time Seen by Provider: 09/19/22 16:06 [facility] ED PFSH: Medical History Acute drug intoxication with delirium Alcohol abuse History of intravenous drug abuse documented in 2012, methamphetamine Nicotine dependence, cigarettes, uncomplicated smoked since age 10 Surgical History History of adenoidectomy History of tonsillectomy Family History Other Cancer Heart disease Social History Smoking and tobacco status: current every day smoker Alcohol intake: unknown Substance/Drug Use: current Current gender identity: Male Physical Exam HENMT: HEAD IMAGES: 1. complains of paresthesias Neuro: JOSE GUADALUPE COMA SCALE: document GCS findings Jose Guadalupe coma scale total score: 15 Course Vital Signs: Vital signs: Vital Signs Temperature 98.1 F 09/19/22 16:11 Pulse Rate 99 09/19/22 16:11 Respiratory Rate 16 09/19/22 16:11 Blood Pressure 134/86 09/19/22 16:11 Pulse Oximetry 97 09/19/22 16:11 Oxygen Delivery Me thod Room Air 09/19/22 16:11 MDM - General Adult Medical Decision Making 27-year-old male patient came in today for concerns of illness after accidentally overdosing on fentanyl 4 days ago. Patient reports some nonspecific symptoms of paresthesia and fatigue. Patient appears nontoxic. No focal neurodeficits were noted. Patient moves all extremities well. Vital signs are normal. Differential diagnosis includes but not limited to substance abuse disorder, unintentional opioid overdose, anxiety, major depression. I received this patient from Tamara Jiménez PA-C, she discussed with the patient if he wanted assistance with his substance abuse disorder he had refused. I reviewed patient's labs which were unremarkable. Reassured patient that everyth ing appeared normal and that he should be okay. Patient was written a prescription for Narcan and I discussed the use of Narcan for himself or others in the event of another accidental overdose. Patient reported understanding of medication. Patient refused any other referrals or other information at this time. Lab Data 09/19/22 16:43 09/19/22 16:43 Laboratory Results WBC 9.5 10^3/uL (4.0-10.0) 09/19/22 16:43 RBC 4.70 10^6/uL (4.1-5.3) 09/19/22 16:43 Hgb 13.7 g/dL (11.7-16.6) 09/19/22 16:43 Hct 41.6 % (42.0-52.0) L 09/19/22 16:43 MCV 88.5 fl (80-94) 09/19/22 16:43 MCH 29.1 pg (28.0-34.0) 09/19/22 16:43 MCHC 32.9 g/dL (30.0-36.0) 09/19/22 16:43 RDW 12.0 % (12.1-15.1) L 09/19/22 16:43 Plt Count 309 10^3/cmm (130-400) 09/19/22 16:43 MPV 8.5 fL (7.4-10.4) 09/19/22 16:43 Neut % (Auto) 68.4 % 09/19/22 16:43 Lymph % (Auto) 21.7 % 09/19/22 16:43 Andrews % (Auto) 6.8 % 09/19/22 16:43 Eos % (Auto) 2.4 % 09/19/22 16:43 Baso % (Auto) 0.4 % 09/19/22 16:43 Neut # (Auto) 6.50 10^3/uL (1.8-7.7) 09/19/22 16:43 Lymph # (Auto) 2.1 10^3/uL (0.8-4.8) 09/19/22 16:43 Andrews # (Auto) 0.7 10^3/uL (0.2-0.9) 09/19/22 16:43 Eos # (Auto) 0.2 10^3/uL (0.0-0.8) 09/19/22 16:43 Baso # (Auto) 0.0 10^3/uL (0.0-0.1) 09/19/22 16:43 Nucleated RBC % (auto) 0 % 09/19/22 16:43 Nucleated RBCs # 0.0 /100WBC 09/19/22 16:43 Sodium 135 mmol/L (136-145) L 09/19/22 16:43 Potassium 3.8 mmol/L (3.5-5.1) 09/19/22 16:43 Chloride 96 mmol/L (98-107) L 09/19/22 16:43 Carbon Dioxide 31 mmol/L (22-29) H 09/19/22 16:43 Anion Gap 11.8 (5-19) 09/19/22 16:43 BUN 11 mg/dL (6-20) 09/19/22 16:43 Creatinine 0.9 mg/dL (0.7-1.2) 09/19/22 16:43 GFR Calculation 100.5 mL/min (90-130) 09/19/22 16:43 Glucose 105 mg/dL (65-115) 09/19/22 16:43 Calculated Osmolality 280 mOsm/kg (285-295) L 09/19/22 16:43 Calcium 9.3 mg/dL (8.5-10.5) 09/19/22 16:43 Total Bilirubin 0.5 mg/dL (0.15-1.2) 09/19/22 16:43 AST 23 U/L (0-40) 09/19/22 16:43 ALT 27 U/L (0-41) 09/19/22 16:43 Alkaline Phosphatase 71 U/L (40-130) 09/19/22 16:43 C-Reactive Protein 6.0 mg/L (0.0-4.9) H 09/19/22 16:43 Total Protein 6.6 g/dL (6.6-8.7) 09/19/22 16:43 Albumin 4.2 g/dL (3.5-5.2) 09/19/22 16:43 Globulin 2.4 g/dL (1.3-4.6) 09/19/22 16:43 Discharge Plan Discharge Patient Disposition: Home Clinical Impression: Substance abuse Unintentional poisoning by opioid Qualifiers: Encounter type: initial encounter Qualified Code(s): T40.2X1A - Poisoning by other opioids, accidental (unintentional), initial encounter Condition: Stable Prescriptions: New naloxone 4 mg/actuation spray,non-aerosol 4 mg intranasal Q2M PRN (Reason: opioid overdose) Qty: 2 0RF Rx Instructions: spray 1 dose into ONE nostril; alternate nostrils w each dose until help arrives No Action tamsulosin [Flomax] 0.4 mg capsule 0.4 mg PO DAILY Qty: 14 0RF sulfamethoxazole-trimethoprim [Bactrim DS] 800-160 mg tablet 1 tab PO BID 7 Days Qty: 14 0RF Discharge Orders: Discharge ED (Routine); Ordered 09/19/22 Ordered By: Gamaliel Benjamin Referrals: Cody Louis DO [Primary Care Provider] - Discharge Diet: Usual diet Discharge Activity: Increase activity as tolerated Patient Instructions: Opioid Safety, Pain Management Activity Restrictions/Additional Instructions: Home and rest. Drink plenty of water and fluids. Healthy diet and activity. Follow-up with primary care for further instructions. Return to ED for new concerns. Sign Out Sign Out Data: Patient Sign Out occurred on 09/19/22 at 17:35. Patient's care was discussed, and care was transferred from to Gamaliel Benjamin. Coding Level of Care Code ED Component Design Engineer for Boris Jones
[2022-09-19 16:56] LABS: Basophils % 0.4 %; Eosinophils # 0.2 10^3/uL (0.0-0.8); Eosinophils % 2.4 %; Hematocrit 41.6 % (42.0-52.0); Hemoglobin 13.7 g/dL (11.7-16.6); Lymphocytes # 2.1 10^3/uL (0.8-4.8); Lymphocytes % 21.7 %; Mean Corpuscular HGB Conc 32.9 g/dL (30.0-36.0); Mean Corpuscular Hemoglobin 29.1 pg (28.0-34.0); Mean Corpuscular Volume 88.5 fl (80-94); Mean Platelet Volume 8.5 fL (7.4-10.4); Monocytes # 0.7 10^3/uL (0.2-0.9); Monocytes % 6.8 %; Neutrophils % 68.4 %; Nucleated Red Blood Cells % 0 %; Platelet Count 309 10^3/cmm (130-400); White Blood Count 9.5 10^3/uL (4.0-10.0)
[2022-09-19 17:13] LABS: Alanine Aminotransferase 27 U/L (0-41); Albumin Level 4.2 g/dL (3.5-5.2); Alkaline Phosphatase 71 U/L (40-130); Anion Gap 11.8 (5-19); Aspartate Amino Transferase 23 U/L (0-40); Blood Urea Nitrogen 11 mg/dL (6-20); Calcium 9.3 mg/dL (8.5-10.5); Carbon Dioxide 31 mmol/L (22-29); Chloride 96 mmol/L (98-107); Globulin 2.4 g/dL (1.3-4.6); Glomerular Filtration Rate 100.5 mL/min (90-130); Glucose 105 mg/dL (65-115); Osmolality Calculated 280 mOsm/kg (285-295); Potassium 3.8 mmol/L (3.5-5.1); Sodium 135 mmol/L (136-145); Total Bilirubin 0.5 mg/dL (0.15-1.2); Total Protein 6.6 g/dL (6.6-8.7)
== END 2022-09-19 17:58 | disposition home or self-care (01) ==
PROVIDERS: Physician Assistant; Emergency Provider Nurse Practitioner Family; PCP Electrodiagnostic Medicine
DX: T40.2X1A Poisoning by other opioids, accidental (unintentional), initial encounter (principal); F11.10 Opioid abuse, uncomplicated; F17.210 Nicotine dependence, cigarettes, uncomplicated
CPT/HCPCS: 36415; 80053; 85025; 86140; 99283

== ENCOUNTER 2023-02-01 07:39 | Emergency (ER) | payer MEDICAID, SELFPAY ==
[2023-02-01 07:41] VITALS: BP 122/97; PULSE 95; RESP 21; TEMP 36.1; O2SAT 99; BMI 24.0
--- NOTE | 2023-02-01 07:50 | W.ED.OVERDOS ---
HPI - Overdose General: Chief Complaint: Overdose Stated Complaint: overdose Time Seen by Provider: 02/01/23 07:45 Source: patient and EMS Mode of arrival: EMS History of Present Illness: 27-year-old male presents to the emergency room via EMS after a fentanyl overdose. Patient admits he did fentanyl prior to arrival. He had done an IV. He had witnessed apneic episode. Bystanders performed CPR however when EMS arrived he did have a pulse present, but was still apneic. He was given 0.8 and Narcan. By time he arrived in the emergency room he is awake and alert and answering questions. Patient admits to having overdosed on fentanyl accidentally denies any suicidal homicidal ideation. He states he is trying not to do drugs because of his children. MD complaint: accidental overdose Onset (ago): minute(s) Treatments Prior to Arrival: narcan Review of Systems Const: Denies: fever(s), chills, fatigue or malaise Card: Denies: chest pain Resp: Denies: dyspnea, productive cough or non-productive cough GI: Denies: abdominal pain, nausea or vomiting : Denies: flank pain, dysuria, urinary frequency or urinary urgency Skin/Breast: Denies: rash or pruritus PFSH ED PFSH: Medical History Acute drug intoxication with delirium Alcohol abuse History of intravenous drug abuse documented in 2012, methamphetamine Nicotine dependence, cigarettes, uncomplicated smoked since age 10 Surgical History History of adenoidectomy History of tonsillectomy Family History Other Cancer Heart disease Social History Smoking and tobacco status: current every day smoker Alcohol intake: unknown Substance/Drug Use: current Current gender identity: Male Physical Exam Const: GENERAL APPEARANCE: cooperative and comfortable ORIENTATION/CONSCIOUSNESS: Yes awake, Yes oriented to person, Yes oriented to place and Yes oriented to time HENMT: COMMON NORMALS: normocephalic, atraumatic and hearing grossly normal bilaterally HEAD & SCALP: normocephalic and atraumatic Resp: COMMON NORMALS: normal respiratory effort, No retractions, No use of accessory muscles and clear to auscultation bilaterally AUSCULTATION: clear to auscultation bilaterally Cardio: COMMON NORMALS: regular rate, regular rhythm and No murmurs present (Cardio) RATE: regular rate RHYTHM: regular rhythm GI: COMMON NORMALS: Soft to palpation and No hepatosplenomegaly present AUSCULTATION: Yes normoactive bowel sounds PALPATION: Yes Soft to palpation, No Tenderness to palpation present (GI), No Guarding due to palpation present (GI) and Yes No hepatosplenomegaly present Extremity: COMMON NORMALS: normal to inspection, capillary refill normal, no clubbing, cyanosis or edema, no calf tenderness and no pedal edema Neuro: SENSORIUM/ORIENTATION: Yes oriented to person, Yes oriented to place and Yes oriented to time Skin: COMMON NORMALS: no rashes or lesions noted GENERAL SKIN EXAM: no rashes or lesions noted Course Vital Signs: Vital signs: Vital Signs Temperature 97.0 F L 02/01/23 07:41 Pulse Rate 72 02/01/23 08:41 Respiratory Rate 20 H 02/01/23 08:41 Blood Pressure 122/97 02/01/23 08:00 Pulse Oximetry 97 02/01/23 08:42 Oxygen Delivery Me thod Room Air 02/01/23 08:42 Oxygen Flow Rate 3 02/01/23 08:41 MDM - Overdose Medical Decision Making Patient is more awake and alert he wishes to go he denies any suicidal or homicidal ideation. He made mention of his children at 1 point we did make a DFS referral and uncertain if he has access to his children or. The nurse called DFS they felt that did not meet criteria. Patient cannot tell us where his children were at we did contact his mother when he gave us permission just to verify that the children are safe which she confirmed. He is wanting to go home. Encouraged him to abstain from narcotics she was given a prescription for Narcan. Medical Records I reviewed the patient's medical records. Lab Data I reviewed the patient's lab results. 02/01/23 07:48 02/01/23 07:48 Laboratory Results WBC 5.78 10^3/uL (3.29-11.43) 02/01/23 07:48 RBC 4.66 10^6/uL (3.85-5.65) 02/01/23 07:48 Hgb 14.10 g/dL (11.27-16.99) 02/01/23 07:48 Hct 43.4 % (37-53) 02/01/23 07:48 MCV 93.1 fl (82-101) 02/01/23 07:48 MCH 30.3 pg (27-33) 02/01/23 07:48 MCHC 32.5 g/dL (30-55) 02/01/23 07:48 RDW 12.3 % (12.1-15.1) 02/01/23 07:48 Plt Count 243 10^3/cmm (157-399) 02/01/23 07:48 MPV 8.6 fL (7.4-10.4) 02/01/23 07:48 Neut % (Auto) 57.9 % 02/01/23 07:48 Lymph % (Auto) 31.3 % 02/01/23 07:48 Gove % (Auto) 6.6 % 02/01/23 07:48 Eos % (Auto) 3.6 % 02/01/23 07:48 Baso % (Auto) 0.3 % 02/01/23 07:48 Neut # (Auto) 3.34 10^3/uL (1.8-7.7) 02/01/23 07:48 Lymph # (Auto) 1.8 10^3/uL (0.8-4.8) 02/01/23 07:48 Gove # (Auto) 0.4 10^3/uL (0.2-0.9) 02/01/23 07:48 Eos # (Auto) 0.2 10^3/uL (0.0-0.8) 02/01/23 07:48 Baso # (Auto) 0.0 10^3/uL (0.0-0.1) 02/01/23 07:48 Nucleated RBC % (auto) 0 % 02/01/23 07:48 Nucleated RBCs # 0.0 /100WBC 02/01/23 07:48 Sodium 139 mmol/L (136-145) 02/01/23 07:48 Potassium 4.0 mmol/L (3.5-5.1) 02/01/23 07:48 Chloride 102 mmol/L (98-107) 02/01/23 07:48 Carbon Dioxide 27 mmol/L (22-29) 02/01/23 07:48 Anion Gap 14.0 (5-19) 02/01/23 07:48 BUN 16 mg/dL (6-20) 02/01/23 07:48 Creatinine 1.0 mg/dL (0.7-1.2) 02/01/23 07:48 GFR Calculation 89.0 mL/min (90-130) L 02/01/23 07:48 Glucose 158 mg/dL (65-115) H 02/01/23 07:48 Calculated Osmolality 292 mOsm/kg (285-295) 02/01/23 07:48 Calcium 8.9 mg/dL (8.5-10.5) 02/01/23 07:48 Total Bilirubin 0.7 mg/dL (0.15-1.2) 02/01/23 07:48 AST 24 U/L (0-40) 02/01/23 07:48 ALT 22 U/L (0-41) 02/01/23 07:48 Alkaline Phosphatase 88 U/L (40-130) 02/01/23 07:48 Total Protein 7.2 g/dL (6.6-8.7) 02/01/23 07:48 Albumin 4.6 g/dL (3.5-5.2) 02/01/23 07:48 Globulin 2.6 g/dL (1.3-4.6) 02/01/23 07:48 No radiology studies performed this visit Discharge Plan Discharge Patient Disposition: Home Clinical Impression: Accidental drug overdose Condition: Stable Prescriptions: New Narcan 4 mg/actuation spray,non-aerosol 1 spray intranasal Q3M PRN (Reason: opioid overdose) Qty: 2 0RF Rx Instructions: spray 1 dose into ONE nostril; alternate nostrils w each dose until help arrives Discharge Orders: Discharge ED (Routine); Ordered 02/01/23 Ordered By: Albino Oliva Referrals: Cody Louis DO [Primary Care Provider] - Discharge Diet: Usual diet Discharge Activity: Resume usual activity Patient Instructions: Narcotic Safety (ED), Narcotic Use Disorder (ED), Opioid Safety, Pain Management Activity Restrictions/Additional Instructions: Abstain from the use of narcotics Coding Level of Care Code ED Slate Splitting Supervisor for Chg Karen
[2023-02-01 07:57] LABS: Basophils % 0.3 %; Eosinophils # 0.2 10^3/uL (0.0-0.8); Eosinophils % 3.6 %; Hematocrit 43.4 % (37-53); Lymphocytes # 1.8 10^3/uL (0.8-4.8); Lymphocytes % 31.3 %; Mean Corpuscular HGB Conc 32.5 g/dL (30-55); Mean Corpuscular Hemoglobin 30.3 pg (27-33); Mean Corpuscular Volume 93.1 fl (82-101); Mean Platelet Volume 8.6 fL (7.4-10.4); Monocytes # 0.4 10^3/uL (0.2-0.9); Monocytes % 6.6 %; Neutrophils # 3.34 10^3/uL (1.8-7.7); Neutrophils % 57.9 %; Nucleated Red Blood Cells % 0 %; Platelet Count 243 10^3/cmm (157-399); Red Blood Count 4.66 10^6/uL (3.85-5.65); Red Cell Distribution Width 12.3 % (12.1-15.1); White Blood Count 5.78 10^3/uL (3.29-11.43)
--- NOTE | 2023-02-01 07:57 | ECG_ITS ---
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 Measurements Intervals Morgan Rate: 68 P: 75 MO: 140 QRS: 82 QRSD: 112 T: 69 QT: 433 QTc: 463 Interpretive Statements SINUS RHYTHM POSSIBLE RIGHT VENTRICULAR CONDUCTION DELAY [RSR (QR) IN V1/V2] Compared to ECG 06/27/2021 09:11:25 No significant changes Electronically Signed On 02-01-2023 16:15:45 CDT by Elkin Mendoza M.D. [id number]
[2023-02-01 08:00] VITALS: BP 122/97; PULSE 70; RESP 28; O2SAT 91
--- NOTE | 2023-02-01 08:05 | PC.NURSE ---
Hotline call was made secondary to pt stating he couldn't believe he did this to his kids. Pt would not answer further questions about the children. MD wanted to make sure the children were taken care of. Hotline stated this doesn't meet criteria for abuse, but if we were concerned we could contact police for a [place] check. notified.
--- NOTE | 2023-02-01 08:11 | PC.PHAR ---
PT OVERDOSE ON STREET F[place]. NURSE RECOMMENDED NOT TALKING TO PATIENT AT THIS TIME. PT WILL DISCHARGE SOON.
--- NOTE | 2023-02-01 08:11 | PC.NURSE ---
pts o2 sat 88%, this nurse placed pt on 3L of oxygen. pts o2 sat currently 93%. pt currently resting in bed with eyes closed, in no acute distress at this time.
[2023-02-01 08:14] LABS: Alanine Aminotransferase 22 U/L (0-41); Albumin Level 4.6 g/dL (3.5-5.2); Alkaline Phosphatase 88 U/L (40-130); Aspartate Amino Transferase 24 U/L (0-40); Blood Urea Nitrogen 16 mg/dL (6-20); Calcium 8.9 mg/dL (8.5-10.5); Carbon Dioxide 27 mmol/L (22-29); Chloride 102 mmol/L (98-107); Globulin 2.6 g/dL (1.3-4.6); Glucose 158 mg/dL (65-115); Osmolality Calculated 292 mOsm/kg (285-295); Sodium 139 mmol/L (136-145); Total Bilirubin 0.7 mg/dL (0.15-1.2); Total Protein 7.2 g/dL (6.6-8.7)
--- NOTE | 2023-02-01 08:14 | PC.NURSE ---
Spoke with mother of the patient, Jeanine. She states children are with their mother. Their mother has custody and they are safe. notified.
[2023-02-01 08:41] VITALS: PULSE 72; RESP 20; O2SAT 100
[2023-02-01 08:42] VITALS: O2SAT 97
--- NOTE | 2023-02-01 08:42 | PC.NURSE ---
removed pts oxygen and ambulated down hallway, pt did not need assistance with ambulation. pts o2 97% room air
--- NOTE | 2023-02-01 08:48 | PC.NURSE ---
discharge delayed d/t waiting on security to bring pt clothes to go home in
[2023-02-01 09:55] VITALS: PULSE 65; RESP 25; O2SAT 97
== END 2023-02-01 09:57 | disposition home or self-care (01) ==
PROVIDERS: Emergency Provider Family Medicine; PCP Electrodiagnostic Medicine
DX: T40.411A Poisoning by fentanyl or fentanyl analogs, accidental (unintentional), initial encounter (principal); F17.210 Nicotine dependence, cigarettes, uncomplicated
CPT/HCPCS: 80053; 85025; 93005; 99284

== ENCOUNTER 2023-02-03 11:14 | Emergency (ER) | payer MEDICAID, SELFPAY ==
[2023-02-03 11:15] VITALS: BP 126/64; PULSE 103; RESP 15; TEMP 37.1; O2SAT 94; BMI 23.7
--- NOTE | 2023-02-03 11:34 | PC.PHAR ---
pt states he takes no rx or otc medications-pt states he didnt fill the narcan that was written on 02/01/23
--- NOTE | 2023-02-03 13:32 | W.ED.OVERDOS ---
HPI - Overdose General: Chief Complaint: Overdose Stated Complaint: Overdose Time Seen by Provider: 02/03/23 11:28 History of Present Illness: This patient is a 27-year-old white male who presents to the emergency department following an accidental fentanyl overdose. Patient was given Narcan by EMS. He is awake and oriented at this time. Patient told me he took a very small amount. He is trying to stop using. He is currently living with his father. Review of Systems General: Reports: 10 or more systems reviewed and unremarkable except in HPI and below PFSH ED PFSH: Medical History Acute drug intoxication with delirium Alcohol abuse History of intravenous drug abuse documented in 2012, methamphetamine Nicotine dependence, cigarettes, uncomplicated smoked since age 10 Surgical History History of adenoidectomy History of tonsillectomy Family History Other Cancer Heart disease Social History Smoking and tobacco status: current every day smoker Alcohol intake: unknown Substance/Drug Use: current Current gender identity: Male Physical Exam Const: COMMON NORMALS: no acute distress and patient oriented x3 HENMT: COMMON NORMALS: normocephalic HEAD & SCALP: normocephalic Eye: COMMON NORMALS: Equal, round and reactive pupils present, EOMs intact bilaterally and conjunctivae normal CONJUNCTIVA: Yes conjunctivae normal PUPIL: Yes Equal, round and reactive pupils present Resp: COMMON NORMALS: normal respiratory effort and clear to auscultation bilaterally AUSCULTATION: clear to auscultation bilaterally Neuro: COMMON NORMALS: patient oriented x3, CN's II-XII intact bilaterally, moves all extremities and no focal motor deficits Psych: COMMON NORMALS: mental status grossly normal, Normal thought process present, cooperative, normal affect, speech normal, activity/motor behavior normal, denies homicidal ideation and denies suicidal ideation SPEECH: Yes normal speech THOUGHT PROCESS: Normal thought process present Skin: COMMON NORMALS: no rashes or lesions noted GENERAL SKIN EXAM: no rashes or lesions noted Course Vital Signs: Vital signs: Vital Signs Temperature 98.7 F 02/03/23 11:15 Pulse Rate 103 H 02/03/23 11:15 Respiratory Rate 15 02/03/23 11:15 Blood Pressure 126/64 02/03/23 11:15 Pulse Oximetry 94 02/03/23 11:15 Oxygen Delivery Me thod Room Air 02/03/23 11:15 MDM - Overdose Medical Decision Making Patient was observed for 2 hours. He remains alert and oriented. He was discharged in stable condition. No radiology studies performed this visit Discharge Plan Discharge Patient Disposition: Home Clinical Impression: Accidental drug overdose Condition: Stable Prescriptions: No Action naloxone [Narcan] 4 mg/actuation spray,non-aerosol 1 spray intranasal Q3M PRN (Reason: opioid overdose) Qty: 2 0RF Rx Instructions: spray 1 dose into ONE nostril; alternate nostrils w each dose until help arrives Discharge Orders: Discharge ED (Routine); Ordered 02/03/23 Ordered By: Stephen Amezcua Referrals: Cody Louis DO [Primary Care Provider] - Patient Instructions: Opioid Safety, Pain Management Coding Level of Care Code ED Education General Manager for Boris Jones
== END 2023-02-03 15:19 | disposition home or self-care (01) ==
PROVIDERS: Emergency Provider Emergency Medicine; PCP Electrodiagnostic Medicine
DX: T40.411A Poisoning by fentanyl or fentanyl analogs, accidental (unintentional), initial encounter (principal); F17.210 Nicotine dependence, cigarettes, uncomplicated
CPT/HCPCS: 99283

== ENCOUNTER 2023-02-03 17:08 | Inpatient (IN) | payer MEDICAID, SELFPAY ==
[2023-02-03 17:12] VITALS: BP 143/81; PULSE 115; RESP 20; TEMP 37.3; O2SAT 96; BMI 23.7
--- NOTE | 2023-02-03 17:27 | ED.C_ITS ---
HPI - Psych General: Chief Complaint: Psychiatric Symptoms Stated Complaint: 96 hold Time Seen by Provider: 02/03/23 17:27 History of Present Illness: This patient is a 27-year-old white male who presents to the emergency department under a 96-hour hold. I just saw this patient a couple of hours ago after a fentanyl overdose. Patient's mother was successful in obtaining a 96-hour hold for the patient due to repeated fentanyl overdoses. Review of Systems General: Reports: 10 or more systems reviewed and unremarkable except in HPI and below PFSH ED PFSH: Medical History Acute drug intoxication with delirium Alcohol abuse History of intravenous drug abuse documented in 2013, methamphetamine Nicotine dependence, cigarettes, uncomplicated smoked since age 10 Surgical History History of adenoidectomy History of tonsillectomy Family History Other Cancer Heart disease Social History Smoking and tobacco status: current every day smoker Alcohol intake: unknown Substance/Drug Use: current Current gender identity: Male Physical Exam Const: COMMON NORMALS: no acute distress, patient oriented x3 and alert HENMT: COMMON NORMALS: normocephalic and moist oral mucous membranes HEAD & SCALP: normocephalic Eye: COMMON NORMALS: Equal, round and reactive pupils present, EOMs intact bilaterally and conjunctivae normal CONJUNCTIVA: Yes conjunctivae normal PUPIL: Yes Equal, round and reactive pupils present Neck/C-Spine: COMMON NORMALS: supple Resp: COMMON NORMALS: normal respiratory effort and clear to auscultation bilaterally AUSCULTATION: clear to auscultation bilaterally GI: COMMON NORMALS: Normal to inspection, nondistended, normoactive bowel sounds present, Soft to palpation and non-tender PALPATION: Yes Soft to palpation Neuro: COMMON NORMALS: patient oriented x3 and CN's II-XII intact bilaterally SENSORIUM/ORIENTATION: Yes alert Psych: COMMON NORMALS: mental status grossly normal, Normal thought process present, cooperative, normal affect, speech normal, activity/motor behavior normal, denies hallucinations, denies homicidal ideation and denies suicidal ideation SPEECH: Yes normal speech THOUGHT PROCESS: Normal thought process present Skin: COMMON NORMALS: no rashes or lesions noted GENERAL SKIN EXAM: no rashes or lesions noted Course Vital Signs: Vital signs: Vital Signs Temperature 99.1 F 02/03/23 17:12 Pulse Rate 115 H 02/03/23 17:12 Respiratory Rate 20 H 02/03/23 17:12 Blood Pressure 143/81 02/03/23 17:12 Pulse Oximetry 96 02/03/23 17:12 Oxygen Delivery Me thod Room Air 02/03/23 17:12 MDM - Psych Medical Decision Making Laboratory work-up was unremarkable. Case was discussed with Dr. [place], psychiatrist on-call. He did accept the admission to the psychiatric unit. Patient will be sent to the floor shortly. He is stable. Lab Data 02/03/23 18:15 02/03/23 18:15 Laboratory Results WBC 11.08 10^3/uL (3.29-11.43) 02/03/23 18:15 RBC 4.92 10^6/uL (3.85-5.65) 02/03/23 18:15 Hgb 15.10 g/dL (11.27-16.99) 02/03/23 18:15 Hct 44.9 % (37-53) 02/03/23 18:15 MCV 91.3 fl (82-101) 02/03/23 18:15 MCH 30.7 pg (27-33) 02/03/23 18:15 MCHC 33.6 g/dL (30-55) 02/03/23 18:15 RDW 12.2 % (12.1-15.1) 02/03/23 18:15 Plt Count 276 10^3/cmm (157-399) 02/03/23 18:15 MPV 9.0 fL (7.4-10.4) 02/03/23 18:15 Neut % (Auto) 82.9 % 02/03/23 18:15 Lymph % (Auto) 8.1 % 02/03/23 18:15 Evans % (Auto) 7.2 % 02/03/23 18:15 Eos % (Auto) 1.2 % 02/03/23 18:15 Baso % (Auto) 0.2 % 02/03/23 18:15 Neut # (Auto) 9.19 10^3/uL (1.8-7.7) H 02/03/23 18:15 Lymph # (Auto) 0.9 10^3/uL (0.8-4.8) 02/03/23 18:15 Evans # (Auto) 0.8 10^3/uL (0.2-0.9) 02/03/23 18:15 Eos # (Auto) 0.1 10^3/uL (0.0-0.8) 02/03/23 18:15 Baso # (Auto) 0.0 10^3/uL (0.0-0.1) 02/03/23 18:15 Nucleated RBC % (auto) 0 % 02/03/23 18:15 Nucleated RBCs # 0.0 /100WBC 02/03/23 18:15 Sodium 139 mmol/L (136-145) 02/03/23 18:15 Potassium 4.0 mmol/L (3.5-5.1) 02/03/23 18:15 Chloride 101 mmol/L (98-107) 02/03/23 18:15 Carbon Dioxide 32 mmol/L (22-29) H 02/03/23 18:15 Anion Gap 10.0 (5-19) 02/03/23 18:15 BUN 10 mg/dL (6-20) 02/03/23 18:15 Creatinine 0.8 mg/dL (0.7-1.2) 02/03/23 18:15 GFR Calculation 115.1 mL/min (90-130) 02/03/23 18:15 Glucose 118 mg/dL (65-115) H 02/03/23 18:15 Calculated Osmolality 288 mOsm/kg (285-295) 02/03/23 18:15 Calcium 9.1 mg/dL (8.5-10.5) 02/03/23 18:15 Total Bilirubin 0.2 mg/dL (0.15-1.2) 02/03/23 18:15 AST 19 U/L (0-40) 02/03/23 18:15 ALT 17 U/L (0-41) 02/03/23 18:15 Alkaline Phosphatase 84 U/L (40-130) 02/03/23 18:15 Total Protein 6.7 g/dL (6.6-8.7) 02/03/23 18:15 Albumin 4.1 g/dL (3.5-5.2) 02/03/23 18:15 Globulin 2.6 g/dL (1.3-4.6) 02/03/23 18:15 TSH 0.35 uIU/mL (0.27-4.20) 02/03/23 18:15 Salicylates < 0.3 mg/dL (3-10) L 02/03/23 18:15 Acetaminophen < 5.0 ug/mL (10-30) L 02/03/23 18:15 Ethyl Alcohol < 10 mg/dL (0-10) 02/03/23 18:15 No radiology studies performed this visit Discharge Plan Discharge Condition: Stable Prescriptions: No Action naloxone [Narcan] 4 mg/actuation spray,non-aerosol 1 spray intranasal Q3M PRN (Reason: opioid overdose) Qty: 2 0RF Rx Instructions: spray 1 dose into ONE nostril; alternate nostrils w each dose until help arrives Narcan 4 mg/actuation spray,non-aerosol 4 mg intranasal Q2M PRN (Reason: opioid overdose) Qty: 1 0RF Rx Instructions: spray 1 dose into ONE nostril; alternate nostrils w each dose until help arrives Referrals: Cody Louis DO [Primary Care Provider] - Coding Level of Care Code ED Traffic Or System Dispatcher for Boris Jones
--- NOTE | 2023-02-03 17:49 | ECG_ITS ---
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 Measurements Intervals Oley Rate: 108 P: 73 WI: 125 QRS: 83 QRSD: 98 T: 47 QT: 321 QTc: 430 Interpretive Statements SINUS TACHYCARDIA NONSPECIFIC T-WAVE ABNORMALITY ABNORMAL RHYTHM ECG Compared to ECG 02/01/2023 07:57:29 T-wave abnormality now present Sinus rhythm no longer present Electronically Signed On 02-03-2023 20:53:46 CDT by Xavier Fernandez M.D. [id number]
[2023-02-03 18:38] LABS: Basophils % 0.2 %; Eosinophils # 0.1 10^3/uL (0.0-0.8); Eosinophils % 1.2 %; Hematocrit 44.9 % (37-53); Lymphocytes # 0.9 10^3/uL (0.8-4.8); Lymphocytes % 8.1 %; Mean Corpuscular HGB Conc 33.6 g/dL (30-55); Mean Corpuscular Hemoglobin 30.7 pg (27-33); Mean Corpuscular Volume 91.3 fl (82-101); Monocytes # 0.8 10^3/uL (0.2-0.9); Monocytes % 7.2 %; Neutrophils # 9.19 10^3/uL (1.8-7.7); Neutrophils % 82.9 %; Nucleated Red Blood Cells % 0 %; Platelet Count 276 10^3/cmm (157-399); Red Blood Count 4.92 10^6/uL (3.85-5.65); Red Cell Distribution Width 12.2 % (12.1-15.1); White Blood Count 11.08 10^3/uL (3.29-11.43)
[2023-02-03 19:07] LABS: Acetaminophen < 5.0 ug/mL (10-30); Alanine Aminotransferase 17 U/L (0-41); Albumin Level 4.1 g/dL (3.5-5.2); Alcohol Level < 10 mg/dL (0-10); Alkaline Phosphatase 84 U/L (40-130); Aspartate Amino Transferase 19 U/L (0-40); Blood Urea Nitrogen 10 mg/dL (6-20); Calcium 9.1 mg/dL (8.5-10.5); Carbon Dioxide 32 mmol/L (22-29); Chloride 101 mmol/L (98-107); Creatinine Clr Calc Pharmacy 161.1672; Globulin 2.6 g/dL (1.3-4.6); Glomerular Filtration Rate 115.1 mL/min (90-130); Glucose 118 mg/dL (65-115); Osmolality Calculated 288 mOsm/kg (285-295); Salicylate < 0.3 mg/dL (3-10); Sodium 139 mmol/L (136-145); Thyroid Stimulating Hormone 0.35 uIU/mL (0.27-4.20); Total Bilirubin 0.2 mg/dL (0.15-1.2); Total Protein 6.7 g/dL (6.6-8.7)
[2023-02-03 20:05] VITALS: BP 138/76; PULSE 101; RESP 18; O2SAT 96
[2023-02-03 20:07] VITALS: BP 103/63; PULSE 113; RESP 20; TEMP 37.1; O2SAT 93
--- NOTE | 2023-02-03 20:25 | PC.NURSE ---
96 Hour Involuntary Hold Patient Rights have been discussed with patient and a copy of the same has been provided to him. Manager Aviation, Shahram Hollis was present at bedside at the time of presentation.
[2023-02-03] MEDS: nicotine 2 mg Gum BUCCAL (21:12)
[2023-02-03] MEDS: LORazepam 2 mg Tablet PO (21:13)
[2023-02-03 21:35] VITALS: BP 103/63; PULSE 113; RESP 20; TEMP 37.1; O2SAT 93
--- NOTE | 2023-02-03 22:15 | PC.NURSE ---
Pt arrived to [facility]PU via security and RN at approximately 2036. Pt is highly anxious, states I've OD'd on Fentanyl twice. While completing assessment pt became very anxious veering on agitation. Assessment was able to be completed, however pt did not want to be forth coming regarding his drug use.
[2023-02-04] MEDS: LORazepam 2 mg Tablet PO (01:10)
[2023-02-04 06:00] VITALS: BP 108/75; PULSE 76; RESP 20; O2SAT 98
--- NOTE | 2023-02-04 06:09 | PC.NURSE ---
Pt periodically yells out while sleeping, you fucking bitch . One on one care and redirection provided. Pt states he is hungry at this time, sandwich provided.
--- NOTE | 2023-02-04 08:38 | P.NPUHP_ITS ---
Providers/Chief Complaint Admitting Physician: Luke Boston MD Primary Care Provider: Cody Louis DO Chief Complaint: 96 hold HPI NPU History of Present Illness Milind Lantigua is a 27 year old male admitted and placed on a 96-hour hold after he had overdosed on fentanyl with concerns about suicidal ideation. He had recently presented to the emergency department with a series of overdoses on IV fentanyl as he had expressed that he has an addiction to opiates and methamphetamine. The patient was noncompliant and verbally abusive as he refus ed to answer further questions. He had stated that he simply needed to get rest. He was admitted to the neuropsychiatric unit for further evaluation and treatment. He had indicated that he had been currently homeless for several months. He had not provided a urine drug screen. He was not easily aroused after several attempts to interview. Previous records had indicated that the patient has had periods of time where he has racing thoughts and difficulties with having excess energy and agitation with racing thoughts. He had also had reported a history of having frequent distractibility in the past and other periods he had reported having depression. He was a poor historian. Psychiatric history: No previous history reported of inpatient hospitalizations although previous records had indicated that the patient had received trials of medication before in the past including prazosin, Depakote, and Wellbutrin. He had reported in the past a history of having been in inpatient rehabilitation and outpatient programs for substance use. Drug and alcohol history: There has been reports of methamphetamine abuse beginning at the age of 10 along with a history of alcohol abuse beginning at the age of 10 as well. Furthermore, there appeared to have been history of fentanyl abuse for 2 years as well. There has been reported problems with agitation and aggression associated with drug use particularly recently having taken acid. Medical history: Lactic acidosis, septic bursitis Surgical history: Adenoidectomy and tonsillectomy per previous chart Allergies: No known drug allergies Medications: None Family psychiatric history: Per previous records alcoholism in the father history: None Legal history: Denied. Social history: Previous records had suggested that he had been raised by his biological parents and reports that his parents had when the patient was young. He had reported apparently having anger issues and reported that his dad was villareal and also had anger issues. He had reported drug use beginning in his early adolescence. It was reported that the patient had been in rehabilitation for marijuana use under the age of 17. He had had a previous h istory of IV drug use as well. There was no past reports of sexual physical or emotional abuse. Previous records it intimated the patient has some children although he currently reports that he is living on the streets in [facility]. 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 Meds NPU Home Medications Medication Instructions Recorded Confirmed Last Taken Type No Known Home Medications 02/03/23 02/03/23 Unknown History Allergies Allergy/AdvReac Type Severity Reaction Status Date / Time No Known Allergies Allergy Verified 02/03/23 17:15 PFSH NPU PFSH: Medical History Acute drug intoxication with delirium Alcohol abuse History of intravenous drug abuse documented in 2012, methamphetamine Nicotine dependence, cigarettes, uncomplicated smoked since age 10 Surgical History History of adenoidectomy History of tonsillectomy Family History Other Cancer Heart disease Social History Smoking and tobacco status: current every day smoker Alcohol intake: unknown Substance/Drug Use: current Current gender identity: Male Mental Status Exam MSE Comments: The patient was fluctuating in and out of consciousness. He was a poor historian. His gait was steady when walking. He did not appear to be responding to internal stimuli. His mood was described as terrible. His affect appeared irritable and mood-congruent. He appeared noticeably agitated on the unit. His thought process was concrete. His thought content showed no evidence of suicidal or homicidal ideation. He did not appear to be responding internal stimuli. There was no evidence of delusional thinking. His insight is feeble. His judgment is poor. His impulse control appeared limited. Recent and remote memory were difficult to assess as he was essentially nonverbal. Vitals/I&O/Wt Last Vital Signs Temp 98.8 F 02/03/23 21:35 Pulse 76 02/04/23 06:00 Resp 20 H 02/04/23 06:00 BP 108/75 02/04/23 06:00 Pulse Ox 98 02/04/23 06:00 O2 Del Method Room Air 02/04/23 06:00 Weight last 48 hrs Weight 83.915 kg Data NPU 02/03/23 18:15 02/03/23 18:15 A&P Assessment and plan (1) Unspecified mood [affective] disorder: (2) Opioid dependence: Plan 1. ?Encourage individual, group and milieu therapy. 2.?Recommend sober living treatment at the highest level of care to which the patient is willing to commit. 3..??? Continue q-15 minute checks for safety. 4. Patient to remain on 96 hour hold. ? Involuntary Hold Information 96 Hour Hold: 96 Hour Involuntary Admission: Yes 96 Hour Hold Ending Date: 02/09/23 96 Hour Hold Ending Time: 19:36 Attestations NPU Medical Necessity Statement*: Inpatient hospitalization is medically necessary and deemed to be the clinically appropriate intervention at this time.? We will monitor/initiate medications and make changes as indicated.? He will be in the hospital for over 2 midnights.? His likely length of stay 5-7 days. Coding Level of Care Code Acute Code for Chg Fwd Diagnoses Unspecified mood [affective] disorder F39 Opioid dependence F11.20
[2023-02-04] MEDS: thiamine 100 mg Tablet PO (09:10)
[2023-02-04] MEDS: multivitamin therapeutic Tablet 1 TAB PO (09:10)
[2023-02-04] MEDS: folic acid 1 mg Tablet PO (09:10)
[2023-02-04] MEDS: OLANZapine 5 mg ODT PO (09:10)
--- NOTE | 2023-02-04 09:13 | PC.NURSE ---
Administered 5mg Zyprexa ODT to patient for agitations. Patient stated that he is not in the best mood because he is coming off of drugs, per patient. Patient laying in bed with door cracked.
--- NOTE | 2023-02-04 09:16 | PC.OT ---
OT EVALUATION ATTEMPTED; PATIENT IS SLEEPING SOUNDLY. WILL ATTEMPT AT A LATER TIME.
--- NOTE | 2023-02-04 09:24 | PC.NURSE ---
During morning assessment, patient stated I'm not in a good mood . This nurse asked if it was because he was here or if I did something to upset him. Patient stated, no it is because he is coming off of the drugs. After administering Zyprexa ODT 5mg, this nurse continued with assessment. Patient denied SI, HI, and AVH. Patient reported some anxiety and depression related to not knowing where he will live when he leaves and when he will next see his kids. Patient stated that he and his girlfriend, who isn't his kids mother, broke up recently. This nurse informed patient that when he is released, the community case manager will ensure that he has some place to go.
[2023-02-04 14:00] VITALS: BP 109/67; PULSE 87; RESP 20; TEMP 36.9; O2SAT 96
--- NOTE | 2023-02-04 14:51 | PC.OT ---
OT EVALUATION ATTEMPTED AGAIN IN P.M. PATIENT CONTINUES TO SLEEP SOUNDLY.
[2023-02-04] MEDS: nicotine 2 mg Gum BUCCAL (15:45)
[2023-02-04 20:35] VITALS: BP 109/71; PULSE 88; RESP 17; O2SAT 96
[2023-02-05 06:00] VITALS: RESP 16
--- NOTE | 2023-02-05 06:45 | PC.NURSE ---
Only obtain RR for patient per patient request of not being woke up for vitals this morning.
[2023-02-05] MEDS: thiamine 100 mg Tablet PO (08:51)
[2023-02-05] MEDS: multivitamin therapeutic Tablet 1 TAB PO (08:51)
[2023-02-05] MEDS: folic acid 1 mg Tablet PO (08:51)
[2023-02-05] MEDS: nicotine 2 mg Gum BUCCAL ×2 (08:54→12:15)
[2023-02-05] MEDS: OLANZapine 5 mg ODT PO (11:26)
--- NOTE | 2023-02-05 11:31 | PC.NURSE ---
Patient agitated, rapidly pacing, stating he needs out of here. This nurse administered 5mg Zyprexa ODT. Patient now taking a shower.
[2023-02-05 14:00] VITALS: BP 104/71; PULSE 92; RESP 14; TEMP 36.8; O2SAT 99
[2023-02-05] MEDS: buprenorphine-naloxone 4-1 mg Film 2 EACH SUBLINGUAL ×2 (16:33→18:46)
--- NOTE | 2023-02-05 17:30 | PC.OT ---
OT attempted evaluation on 02/05/2023 and was declined. Will attempt at later time.
--- NOTE | 2023-02-05 18:51 | P.NPUPN_ITS ---
Subjective NPU Subjective: 27-year-old white male admitted with history of mood lability and active significant opiate dependence with a questionable suicide attempt with multiple episodes of overdose on fentanyl. Patient had reported opiate withdrawal symptoms. He reported no prior trial on Suboxone but was interested in consideration of this. He had reported depressed mood and low energy. Staff notes the patient had spent much of the day lying in his bedroom and remained isolative. He had endorsed history of irritability and mood swings and acknowledged a past history of being placed on mood stabilizers. Mental Status Exam MSE Comments: The patient was alert and oriented to person place and time. His gait was steady when walking. He did not appear to be responding to internal stimuli. His mood was described as okay. His affect appeared irritable and mood- incongruent. He appeared noticeably uncomfortable. His thought process was concrete. His thought content showed no evidence of suicidal or homicidal ideation although he had acknowledged the potential lethality of his overdose. He did not appear to be responding internal stimuli. There was no evidence of delusional thinking. His insight is poor. His judgment is poor. His impulse control appeared limited. Recent and remote memory appeared to be adequate at baseline. Vitals/I&O/Wt Last Vital Signs Temp 98.3 F 02/05/23 14:00 Pulse 92 02/05/23 14:00 Resp 14 02/05/23 14:00 BP 104/71 02/05/23 14:00 Pulse Ox 99 02/05/23 14:00 O2 Del Method Room Air 02/04/23 20:35 Data NPU 02/03/23 18:15 02/03/23 18:15 A&P Assessment and plan (1) Unspecified mood [affective] disorder: (2) Opioid dependence: Plan 1. ?Encourage individual, group and milieu therapy. 2.?Recommend sober living treatment at the highest level of care to which the patient is willing to commit. 3..??? Continue q-15 minute checks for safety. 4. Patient to remain on 96 hour hold. ? 5. Continue to gather collateral information 6. Initiate Suboxone 16/2 mg daily. Involuntary Hold Information 96 Hour Hold: 96 Hour Involuntary Admission: Yes 96 Hour Hold Ending Date: 02/09/23 96 Hour Hold Ending Time: 19:36 Attestations NPU Medical Necessity Statement*: Inpatient hospitalization is medically necessary and deemed to be the clinically appropriate intervention at this time.? We will monitor/initiate medications and make changes as indicated.? His likely length of stay 5-7 days. Coding Level of Care Code Acute Code for Chg Fwd Diagnoses Unspecified mood [affective] disorder F39 Opioid dependence F11.20
--- NOTE | 2023-02-05 20:13 | PC.NURSE ---
IN BED RESTING, AROUSES TO VOICE. PT DENIES PAIN. DENIES SI/HI AND AVH AT THIS TIME. PT IS COOPERATIVE AND FRIENLY. DECLINES ANY MEDICATIONS FOR SLEEP/ANXIETY. SUPPORT VOICED.
[2023-02-05 20:24] VITALS: BP 105/65; PULSE 81; RESP 18; TEMP 36.7; O2SAT 98
--- NOTE | 2023-02-06 06:45 | PC.NURSE ---
pt refused vs resp 18
[2023-02-06] MEDS: buprenorphine-naloxone 4-1 mg Film 2 EACH SUBLINGUAL ×2 (08:20→17:41)
[2023-02-06] MEDS: multivitamin therapeutic Tablet 1 TAB PO (08:20)
[2023-02-06] MEDS: thiamine 100 mg Tablet PO (08:20)
[2023-02-06] MEDS: folic acid 1 mg Tablet PO (08:20)
[2023-02-06 08:35] LABS: Add Urine Microscopic? NO; Charge for UA Resulting for Rev
[2023-02-06 08:53] LABS: Bilirubin Urine Neg (Negative); Blood Urine Neg (Negative); Glucose Urine UA Norm (Normal); Ketones Urine Negative (Negative); Leukocyte Esterase Urine Negative (Negative); Nitrate Urine Negative (Negative); Protein Urine Neg (Negative); Urine Appearance Clear (CLEAR); Urine Color Yellow (Yellow); Urobilinogen Urine Norm (Negative); pH Urine 7 (5-7)
[2023-02-06 08:54] LABS: Amphetamines Screen Urine Negative (Negative); Barbiturates Screen Urine Negative (Negative); Benzodiazepines Screen Urine Positive (Negative); Cocaine Screen Urine Negative (Negative); Opiate Screen Urine Negative (Negative); PCP Screen Urine Negative (Negative); THC Screen Urine Positive (Negative)
[2023-02-06 13:22] VITALS: BP 113/73; PULSE 83; RESP 12; O2SAT 98
[2023-02-06] MEDS: nicotine 2 mg Gum BUCCAL ×2 (14:02→17:42)
--- NOTE | 2023-02-06 17:35 | P.NPUPN_ITS ---
Subjective NPU Subjective: 27-year-old white male admitted with history of mood lability and active significant opiate dependence with a questionable suicide attempt with multiple episodes of overdose on fentanyl. The patient had reported feeling significantly better. He had reported feeling calmer. He denied any thoughts of hurting himself or others. He reported improved energy and reported that he felt calmer. He had expressed interest in considering inpatient treatment as he had stated that his use of Suboxone had reminded him of what it was like to feel normal again. He had been somewhat isolative on the milieu. He reported good motivation to remain on this medication Mental Status Exam MSE Comments: casually dressed white male with poor hygiene who appeared alert and oriented person place and time. There was no evidence of any abnormal involuntary motor movements tics or tremors appreciated. There was evidence of mild psychomotor retardation. His thought process was linear logical and goal-directed. His thought content showed no evidence of active homicidal or suicidal ideation. Hi s mood was described as better. His affect was brighter. His attention span appeared improved. His recent and remote memory were grossly intact his speech was normal in regards to rate rhythm and prosody. His insight was partial. His judgment was limited. His impulse control remains guarded. Vitals/I&O/Wt Last Vital Signs Temp 98.1 F 02/05/23 20:24 Pulse 83 02/06/23 13:22 Resp 12 02/06/23 13:22 BP 113/73 02/06/23 13:22 Pulse Ox 98 02/06/23 13:22 O2 Del Method Room Air 02/06/23 13:22 Data NPU 02/03/23 18:15 02/03/23 18:15 A&P Assessment and plan (1) Unspecified mood [affective] disorder: (2) Opioid dependence: Plan 1. ?Encourage individual, group and milieu therapy. 2.?Recommend sober living treatment at the highest level of care to which the patient is willing to commit. 3..??? Continue q-15 minute checks for safety. 4. Patient to remain on 96 hour hold. ? 5. Continue to gather collateral information 6. Continue Suboxone 16/2 mg daily. Involuntary Hold Information 96 Hour Hold: 96 Hour Involuntary Admission: Yes 96 Hour Hold Ending Date: 02/09/23 96 Hour Hold Ending Time: 19:36 Attestations NPU Medical Necessity Statement*: Inpatient hospitalization is medically necessary and deemed to be the clinically appropriate intervention at this time.? We will monitor/initiate medications and make changes as indicated.? His likely length of stay 3-4 days. Coding Level of Care Code Acute Code for Chg Fwd Diagnoses Unspecified mood [affective] disorder F39 Opioid dependence F11.20
[2023-02-06 20:05] VITALS: BP 124/83; PULSE 77; RESP 15; TEMP 36.9; O2SAT 99
--- NOTE | 2023-02-06 21:01 | PC.NURSE ---
IN BED RESTING, AROUSES TO VOICE. DENIES PAIN. DENIES SI/HI AND AVH AT THIS TIME. PT IS WITHDRAWN TO ROOM AND ISOLATES. PT ENCOURAGED TO GET OUT AND SOCIALIZE WITH OTHER PEERS, PT DECLINES. SUPPORT VOICED.
[2023-02-06] MEDS: hyDROXYzine 25 mg Capsule 50 MG PO (23:13)
[2023-02-06] MEDS: trazodone 50 mg Tablet PO (23:13)
--- NOTE | 2023-02-06 23:16 | PC.NURSE ---
PT UP TO NURSES STATION STATING I CAN'T SLEEP. PT WAS GIVEN TRAZODONE 50 MG FOR SLEEP AND VISTARIL 50 MG FOR ANXIETY. PT TOOK MEDICATIONS THEN WENT BACK TO ROOM TO REST.
[2023-02-07 06:00] VITALS: BMI 22.7
--- NOTE | 2023-02-07 06:36 | PC.NURSE ---
VISTARIL AND TRAZODONE GIVEN LAST NIGHT IS DEEMED EFFECTIVE. PT DID GET UP BRIEFLY AND STATED THAT VISTARIL YOU GAVE ME MADE ME WIDE AWAKE THEY GIVE THAT STUFF FOR ADHD AND NOW I'M LIKE BLASTED AND CAN NOT SLEEP. PT WAS INFORMED HE IS NOT SLEEPING DUE TO SLEEPING IN BED THE LAST THREE DAYS AND WE DO NOT GIVE VISTARIL FOR ADHD. PT CONTINUED TO ARGUE AND WENT IN ROOM AND STARTED POUNDING ON THE WALL HARD AND LOUD. TEN MINUTES LATER PT WAS ASLEEP AND IS STILL SLEEPING AT 0635AM. MEDICATIONS EFFECTIVE.
[2023-02-07] MEDS: folic acid 1 mg Tablet PO (08:53)
[2023-02-07] MEDS: buprenorphine-naloxone 4-1 mg Film 2 EACH SUBLINGUAL ×2 (08:53→18:32)
[2023-02-07] MEDS: multivitamin therapeutic Tablet 1 TAB PO (08:53)
[2023-02-07] MEDS: thiamine 100 mg Tablet PO (08:53)
[2023-02-07 14:00] VITALS: BP 113/69; PULSE 75; RESP 18; TEMP 36.8; O2SAT 99
[2023-02-07] MEDS: nicotine 2 mg Gum BUCCAL (14:44)
--- NOTE | 2023-02-07 16:47 | W.PM.NPUPNS ---
Subjective NPU Subjective: 27-year-old white male with a history of mood disorder unspecified with opiate dependence particularly fentanyl use. The patient had reported feeling better. He again stated that he did not wish to be on any medications but would consider continuing to use Suboxone on outpatient basis. He had also endorsed a history of methamphetamine abuse. He had denied any depression or any hallucinations today. He had been less isolative on the milieu and eating better. The patient had reported that he remained Mental Status Exam MSE Comments: casually dressed white male with poor hygiene who appeared alert and oriented person place and time. There was no evidence of any abnormal involuntary motor movements tics or tremors appreciated. There was evidence of mild psychomotor retardation. His thought process was linear logical and goal-directed. His thought content showed no evidence of active homicidal or suicidal ideation. His mood was described as Okay. His affect was brighter. His attention span appeared improved. His recent and remote memory were grossly intact his speech was normal in regards to rate rhythm and prosody. His insight was partial. His judgment was limited. His impulse control remains guarded. Vitals/I&O/Wt Last Vital Signs Temp 98.3 F 02/07/23 14:00 Pulse 75 02/07/23 14:00 Resp 18 02/07/23 14:00 BP 113/69 02/07/23 14:00 Pulse Ox 99 02/07/23 14:00 O2 Del Method Room Air 02/07/23 14:00 Weight last 48 hrs Weight 80.286 kg Weight 80.286 kg Data NPU 02/03/23 18:15 02/03/23 18:15 A&P Assessment and plan (1) Unspecified mood [affective] disorder: (2) Opioid dependence: Plan 1. ?Encourage individual, group and milieu therapy. 2.?Recommend sober living treatment at the highest level of care to which the patient is willing to commit. 3..??? Continue q-15 minute checks for safety. 4. Patient to remain on 96 hour hold. ? 5. Continue to gather collateral information 6. Continue Suboxone 16/2 mg daily. 7. Discharge tommorow. Involuntary Hold Information 96 Hour Hold: 96 Hour Involuntary Admission: Yes 96 Hour Hold Ending Date: 02/09/23 96 Hour Hold Ending Time: 19:36 Attestations NPU Medical Necessity Statement*: Inpatient hospitalization is medically necessary and deemed to be the clinically appropriate intervention at this time.? We will monitor/initiate medications and make changes as indicated.? His likely length of stay 1-2 days. Coding Level of Care Code Acute Code for Chg Fwd Diagnoses Unspecified mood [affective] disorder F39 Opioid dependence F11.20
[2023-02-07] MEDS: nicotine 4 mg lozenge MUCOUS MEM ×2 (18:49→21:00)
[2023-02-07 19:43] VITALS: BP 112/95; PULSE 66; RESP 15; TEMP 37; O2SAT 94
--- NOTE | 2023-02-07 21:04 | PC.NURSE ---
PT CONTINUES TO NOT SCORE ON CIWA PROTOCOL FOR ALCOHOL WITHDRAWAL ASSESSMENT. PT HAS BEEN ASSESSED SINCE 02/03/23 WITH NO SCORE. ORDERS RECEIVED TO DISCONTINUE CIWA PROTOCOL ASSESSMENT, SEIZURE PRECAUTIONS AND ASPIRATION PRECAUTIONS. ORDERS PLACED. PT EDUCATED. PT HAD NO RESPONSE.
[2023-02-08 06:00] VITALS: BP 103/70; PULSE 67; RESP 13; TEMP 37; O2SAT 95
[2023-02-08] MEDS: buprenorphine-naloxone 4-1 mg Film 2 EACH SUBLINGUAL (08:27)
[2023-02-08] MEDS: multivitamin therapeutic Tablet 1 TAB PO (08:27)
[2023-02-08] MEDS: folic acid 1 mg Tablet PO (08:27)
[2023-02-08] MEDS: thiamine 100 mg Tablet PO (08:27)
[2023-02-08] MEDS: nicotine 4 mg lozenge MUCOUS MEM ×2 (10:27→12:39)
[2023-02-08 14:28] VITALS: BP 103/70; PULSE 67; RESP 13; TEMP 37; O2SAT 95
--- NOTE | 2023-02-08 15:13 | P.NPUDS_ITS ---
Diagnoses at Discharge Discharge Diagnosis (1) Unspecified mood [affective] disorder: Status: Resolved (2) Opioid dependence: Status: Resolved Reason for Visit Reason for Visit: 96 hold Brief History: History of Present Illness Milind Lantigua is a 27 year old male admitted and placed on a 96-hour hold after he had overdosed on fentanyl with concerns about suicidal ideation.? He had recently presented to the emergency department with a series of overdoses on IV fentanyl as he had expressed that he has an addiction to opiates and methamphetamine.? The patient was noncompliant and verbally abusive as he refused to answer further questions.? He had stated that he simply needed to get rest.? He was admitted to the neuropsychiatric unit for further evaluation and treatment.? He had indicated that he had been currently homeless for several months.? He had not provided a urine drug screen.? He was not easily aroused after several attempts to interview.? Previous records had indicated that the patient has had periods of time where he has racing thoughts and difficulties with having excess energy and agitation with racing thoughts.? He had also had reported a history of having frequent distractibility in the past and other periods he had reported having depression.? He was a poor historian. Psychiatric history: No previous history reported of inpatient hospitalizations although previous records had indicated that the patient had received trials of medication before in the past including prazosin, Depakote, and Wellbutrin. He had reported in the past a history of having been in inpatient rehabilitation and outpatient programs for substance use. 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 Furthermore, there appeared to have been history of fentanyl abuse for 2 years as well.? There has been reported problems with agitation and aggression associated with drug use particularly recently having taken acid. Medical history: Lactic acidosis, septic bursitis Surgical history: Adenoidectomy and tonsillectomy per previous chart Allergies: No known drug allergies Medications: None Family psychiatric history: Per previous records alcoholism in the father history: None Legal history: Denied. Social history: Previous records had suggested that he had been raised by his biological parents and reports that his parents had when the patient was young.? He had reported apparently having anger issues and reported that his dad was villareal and also had anger issues.? He had reported drug use beginning in his early adolescence.? It was reported that the patient had been in rehabilitation for marijuana use under the age of 17.? He had had a previous history of IV drug use as well.? There was no past reports of sexual physical or emotional abuse.? Previous records it intimated the patient has some children although he currently reports that he is living on the streets in [facility].? 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 Hospital Course Hospital Course During the hospitalization, the patient had routine laboratory studies which were within normal limits except for a few outliers.? Additionally, there was a general medical evaluation which was also within normal limits and revealed no new acute processes.? At the time of discharge, lethality was denied and psychosis was resolving.? Mood and anxiety were well managed.? The patient endorsed a plan to avoid all drugs of abuse and follow up with the aftercare recommendations of the treatment team.? The patient was evaluated and deemed to be absent credible lethality and had achieved the maximum benefit from an inpatient hospitalization, and so was discharged. He reports no desire to receive additional treatment other than for his opioid dependence and remained on suboxone on discharge for maintenance treatment for opioid dependence. ? Involuntary Hold Information 96 Hour Hold: 96 Hour Involuntary Admission: Yes 96 Hour Hold Ending Date: 02/09/23 96 Hour Hold Ending Time: 19:36 Mental Status Exam MSE Comments: casually dressed white male with minimal hygiene who appeared alert and oriented person place and time. There was no evidence of any abnormal involuntary motor movements tics or tremors appreciated. There was evidence of mild psychomotor retardation. His thought process was linear logical and goal- directed. His thought content showed no evidence of active homicidal or suicidal ideation. His mood was described as allright. His affect was brighter. His attention span appeared improved. His recent and remote memory were grossly intact his speech was normal in regards to rate rhythm and prosody. His insight was partial. His judgment was limited. His impulse control was limited. Discharge Data Studies Completed and Pending: Laboratory Results WBC 11.08 10^3/uL (3. 29-11.43) 02/03/23 18:15 RBC 4.92 10^6/uL (3.8 5-5.65) 02/03/23 18:15 Hgb 15.10 g/dL (11.27 -16.99) 02/03/23 18:15 Hct 44.9 % (37-53) 02/03/23 18:15 MCV 91.3 fl (82-101) 02/03/23 18:15 MCH 30.7 pg (27-33) 02/03/23 18:15 MCHC 33.6 g/dL (30-55) 02/03/23 18:15 RDW 12.2 % (12.1-15.1 ) 02/03/23 18:15 Plt Count 276 10^3/cmm (157 -399) 02/03/23 18:15 MPV 9.0 fL (7.4-10.4) 02/03/23 18:15 Neut % (Auto) 82.9 % 02/03/23 18:15 Lymph % (Auto) 8.1 % 02/03/23 18:15 [place] % (Auto) 7.2 % 02/03/23 18:15 Eos % (Auto) 1.2 % 02/03/23 18:15 Baso % (Auto) 0.2 % 02/03/23 18:15 Neut # (Auto) 9.19 10^3/uL (1.8 -7.7) H 02/03/23 18:15 Lymph # (Auto) 0.9 10^3/uL (0.8- 4.8) 02/03/23 18:15 [place] # (Auto) 0.8 10^3/uL (0.2- 0.9) 02/03/23 18:15 Eos # (Auto) 0.1 10^3/uL (0.0- 0.8) 02/03/23 18:15 Baso # (Auto) 0.0 10^3/uL (0.0- 0.1) 02/03/23 18:15 Nucleated RBC % (a uto) 0 % 02/03/23 18:15 Nucleated RBCs # 0.0 /100WBC 02/03/23 18:15 Sodium 139 mmol/L (136-1 45) 02/03/23 18:15 Potassium 4.0 mmol/L (3.5-5 .1) 02/03/23 18:15 Chloride 101 mmol/L (98-10 7) 02/03/23 18:15 Carbon Dioxide 32 mmol/L (22-29) H 02/03/23 18:15 Anion Gap 10.0 (5-19) 02/03/23 18:15 BUN 10 mg/dL (6-20) 02/03/23 18:15 Creatinine 0.8 mg/dL (0.7-1. 2) 02/03/23 18:15 GFR Calculation 115.1 mL/min (90- 130) 02/03/23 18:15 Glucose 118 mg/dL (65-115 ) H 02/03/23 18:15 Calculated Osmolal ity 288 mOsm/kg (285- 295) 02/03/23 18:15 Calcium 9.1 mg/dL (8.5-10 .5) 02/03/23 18:15 Total Bilirubin 0.2 mg/dL (0.15-1 .2) 02/03/23 18:15 AST 19 U/L (0-40) 02/03/23 18:15 ALT 17 U/L (0-41) 02/03/23 18:15 Alkaline Phosphata se 84 U/L (40-130) 02/03/23 18:15 Total Protein 6.7 g/dL (6.6-8.7 ) 02/03/23 18:15 Albumin 4.1 g/dL (3.5-5.2 ) 02/03/23 18:15 Globulin 2.6 g/dL (1.3-4.6 ) 02/03/23 18:15 TSH 0.35 uIU/mL (0.27 -4.20) 02/03/23 18:15 Urine Color Yellow (Yellow) 02/06/23 08:27 Urine Appearance Clear (CLEAR) 02/06/23 08:27 Urine pH 7 (5-7) 02/06/23 08:27 Ur Specific Gravit y 1.010 (1.005-1.0 30) 02/06/23 08:27 Urine Protein Neg (Negative) 02/06/23 08:27 Urine Glucose (UA) Norm (Normal) 02/06/23 08:27 Urine Ketones Negative (Negati ve) 02/06/23 08:27 Urine Blood Neg (Negative) 02/06/23 08:27 Urine Nitrate Negative (Negati ve) 02/06/23 08:27 Urine Bilirubin Neg (Negative) 02/06/23 08:27 Urine Urobilinogen Norm mg/dL (Negat jannette) 02/06/23 08:27 Ur Leukocyte Suzanne ase Negative (Negati ve) 02/06/23 08:27 Salicylates < 0.3 mg/dL (3-10 ) L 02/03/23 18:15 Urine Opiates Scre en Negative ng/mL (N egative) 02/06/23 08:27 Acetaminophen < 5.0 ug/mL (10-3 0) L 02/03/23 18:15 Ur Barbiturates Sc reen Negative ng/mL (N egative) 02/06/23 08:27 Ur Phencyclidine S crn Negative ng/mL (N egative) 02/06/23 08:27 Ur Amphetamines Sc reen Negative ng/mL (N egative) 02/06/23 08:27 U Benzodiazepines Scrn Positive ng/mL (N egative) H 02/06/23 08:27 Urine Cocaine Scre en Negative ng/mL (N egative) 02/06/23 08:27 U Marijuana (THC) Screen Positive ng/mL (N egative) H 02/06/23 08:27 Ethyl Alcohol < 10 mg/dL (0-10) 02/03/23 18:15 Vitals: Last Vital Signs Temp 98.6 F 02/08/23 14:28 Pulse 67 02/08/23 14:28 Resp 13 02/08/23 14:28 BP 103/70 02/08/23 14:28 Pulse Ox 95 02/08/23 14:28 O2 Del Method Room Air 02/08/23 06:00 Discharge Plan Discharge Patient Disposition: Home Condition: Stable Prescriptions: New Suboxone 8-2 mg film 1 film sublingual BID Qty: 60 0RF Suboxone 8-2 mg film 1 film sublingual BID Qty: 60 0RF Rx Instructions: place 1 strip/tab under (each) side of tongue twice a day Discharge Orders: Discharge Order (Routine); Ordered 02/08/23 Ordered By: Luke Boston Referrals: Home State [place] [Other] (Contact [place] with number provided for insurance needs or questions) [facility] [Outside] - 02/12/23 7:30 am (Initial assessment for services and will need a provider able to follow up with Suboxone) Cody Louis, DO [Primary Care Provider] - Discharge Diet: Usual diet Discharge Activity: Resume usual activity Patient Instructions: Opioid Safety Discharge Attestations NPU Time Spent in Discharge Care*: less than 30 min Specific Discharge Activities: Specific discharge activities: educating patient and documenting/other paperwork Coding Level of Care Code Acute g [facility] note Diagnoses Unspecified mood [affective] disorder F39 Opioid dependence F11.20
== END 2023-02-08 15:08 | disposition home or self-care (01) | DRG 885 ==
LOC: ER 18:25 → NP 19:58
PROVIDERS: Admitting Provider Psychiatry & Neurology Psychiatry; Emergency Provider Emergency Medicine; PCP Electrodiagnostic Medicine; Visit Provider Psychiatry & Neurology Psychiatry
DX: F39 Unspecified mood [affective] disorder (principal); F11.20 Opioid dependence, uncomplicated; T40.414A Poisoning by fentanyl or fentanyl analogs, undetermined, initial encounter; F17.210 Nicotine dependence, cigarettes, uncomplicated; F15.11 Other stimulant abuse, in remission
CPT/HCPCS: 36415; 80053; 80306; 80307; 81003; 84443; 85025; 93005; 96372; 97165; 99285; J0573; J3411

== ENCOUNTER 2023-03-01 09:51 | Emergency (ER) | payer MEDICAID, SELFPAY ==
[2023-03-01 10:00] VITALS: BP 132/88; PULSE 81; RESP 14; TEMP 37.1; O2SAT 99; BMI 22.4
--- NOTE | 2023-03-01 10:21 | ECG_ITS ---
[facility] Test Date: 2023-03-01 Pat Name: Milind Lantigua Department: Room: Gender: Male [employer]: : 1995 Requested By: Tamara Jiménez Order Number: [id number] Montaño MD: Mellisa Da Silva M.D. Measurements Intervals [place] Rate: 66 P: 66 RI: 112 QRS: 87 QRSD: 112 T: 78 QT: 418 QTc: 438 Interpretive Statements SINUS RHYTHM WITH SHORT RI INTERVAL WITH OCCASIONAL SUPRAVENTRICULAR PREMATURE COMPLEXES MODERATE INTRAVENTRICULAR CONDUCTION DELAY [110+ ms QRS DURATION] Compared to ECG 02/03/2023 17:59:29 Short RI interval now present Intraventricular conduction delay now present Sinus tachycardia no longer present T-wave abnormality no longer present Electronically Signed On 03-01-2023 10:40:17 CDT by Mellisa Da Silva M.D. [id number] f
--- NOTE | 2023-03-01 10:23 | W.ED.OVERDOS ---
HPI - Overdose General: Chief Complaint: Overdose Stated Complaint: overdose/had narcan/dizzy nausea Time Seen by Provider: 03/01/23 10:17 PFSH ED PFSH: Medical History (Updated 02/11/23 @ 14:56 by Wendy Dey) Acute drug intoxication with delirium Alcohol abuse History of intravenous drug abuse documented in 2012, methamphetamine Nicotine dependence, cigarettes, uncomplicated smoked since age 10 Psychiatric care Surgical History History of adenoidectomy History of tonsillectomy Family History Other Cancer Heart disease Social History Smoking and tobacco/nicotine status: current every day tobacco/nicotine user Alcohol intake: unknown Substance/Drug Use: current Current gender identity: Male Course Vital Signs: Vital signs: Vital Signs Temperature 98.8 F 03/01/23 10:00 Pulse Rate 81 03/01/23 10:00 Respiratory Rate 14 03/01/23 10:00 Blood Pressure 132/88 03/01/23 10:00 Pulse Oximetry 99 03/01/23 10:00 Oxygen Delivery Me thod Room Air 03/01/23 10:00 Discharge Plan Discharge Condition: Stable Prescriptions: No Action Suboxone 8-2 mg film 1 film sublingual BID Qty: 60 0RF Suboxone 8-2 mg film 1 film sublingual BID Qty: 60 0RF Rx Instructions: place 1 strip/tab under (each) side of tongue twice a day Referrals: Cody Louis DO [Primary Care Provider] - Coding Level of Care Code ED School Child Care Attendant for Boris Jones
--- NOTE | 2023-03-01 10:29 | ED_ITS ---
HPI - Overdose General: Chief Complaint: Overdose Stated Complaint: overdose/had narcan/dizzy nausea Time Seen by Provider: 03/01/23 10:17 Source: patient Mode of arrival: ambulatory History of Present Illness: 27-year-old male presents emergency room with complaints of a fentanyl overdose about an hour prior to arrival he overdosed on fentanyl. He has done this in the past he denies any suicidal ideation or attempt. He is awake and alert at this time. Evidently he goes to fentanyl parties where they intentionally overdose and then rely on others present to give each other Narcan. At the time he presents here he is awake and alert. When questioned during the course of the history whether or not he was suicidal or why he took large dose of fentanyl again he states he was homeless and just wanted to make himself feel better for a few minutes. He had recently been 96 based on a family's request to try to get him into his a rehab to stop this behavior. complaint: intentional overdose Onset (ago): hour(s) (1) How Overdose Was Discovered: family/friend present at time Context: Intentional Overdose: drug/ETOH problems Context: Accidental Overdose: wanted to get high Associated symptoms: depression Treatments Prior to Arrival: narcan Review of Systems Const: Denies: fever(s) or chills Card: Denies: chest pain Resp: Denies: dyspnea GI: Denies: abdominal pain : Denies: dysuria, urinary frequency or urinary urgency Musc: Denies: neck pain or back pain Skin/Breast: Denies: rash PFSH ED PFSH: Medical History Acute drug intoxication with delirium Alcohol abuse History of intravenous drug abuse documented in 2013, methamphetamine Nicotine dependence, cigarettes, uncomplicated smoked since age 10 Psychiatric care Surgical History History of adenoidectomy History of tonsillectomy Family History Other Cancer Heart disease Social History Smoking and tobacco/nicotine status: current every day tobacco/nicotine user Alcohol intake: unknown Substance/Drug Use: current Current gender identity: Male Physical Exam Const: COMMON NORMALS: no acute distress GENERAL APPEARANCE: cooperative and comfortable ORIENTATION/CONSCIOUSNESS: Yes awake, Yes oriented to person, Yes oriented to place and Yes oriented to time HENMT: COMMON NORMALS: normocephalic, atraumatic and hearing grossly normal bilaterally HEAD & SCALP: normocephalic and atraumatic Resp: COMMON NORMALS: normal respiratory effort, No retractions, No use of accessory muscles and clear to auscultation bilaterally AUSCULTATION: clear to auscultation bilaterally Cardio: COMMON NORMALS: regular rate, regular rhythm and No murmurs present (Cardio) RATE: regular rate RHYTHM: regular rhythm GI: COMMON NORMALS: Soft to palpation and No hepatosplenomegaly present AUSCULTATION: Yes normoactive bowel sounds PALPATION: Yes Soft to palpation, No Tenderness to palpation present (GI), No Guarding due to palpation present (GI) and Yes No hepatosplenomegaly present Extremity: COMMON NORMALS: normal to inspection, capillary refill normal, no clubbing, cyanosis or edema, no calf tenderness and no pedal edema Neuro: SENSORIUM/ORIENTATION: Yes oriented to person, Yes oriented to place and Yes oriented to time Skin: COMMON NORMALS: no rashes or lesions noted GENERAL SKIN EXAM: no rashes or lesions noted Course Vital Signs: Vital signs: Vital Signs Temperature 98.8 F 03/01/23 10:00 Pulse Rate 85 03/01/23 11:26 Respiratory Rate 18 03/01/23 11:26 Blood Pressure 122/75 03/01/23 11:26 Pulse Oximetry 98 03/01/23 11:26 Oxygen Delivery Me thod Room Air 03/01/23 11:26 MDM - Overdose Medical Decision Making Patient was administered Narcan in the field by bystanders doing fine no specific problems at this time. Labs reviewed. Discussed with patient the risk of intentionally overdosing on fentanyl. He repeatedly states he is not attempting to kill himself. He is having difficulty socially homeless does not have any place to go and abdominal he is intentionally overdosing with friends nearby as a group and they administered Narcan to each other when they do this for rescue. Discussed with him the risks of doing this. Prescription given for Narcan. We made arrangements for patient to go to the [facility]'s department they will do a background check there to try to get him into a homeless long-term. Medical Records I reviewed the patient's medical records. Lab Data I reviewed the patient's lab results. 03/01/23 10:34 03/01/23 10:34 Laboratory Results WBC 8.10 10^3/uL (3.29-11.43) 03/01/23 10:34 RBC 4.89 10^6/uL (3.85-5.65) 03/01/23 10:34 Hgb 14.60 g/dL (11.27-16.99) 03/01/23 10:34 Hct 43.8 % (37-53) 03/01/23 10:34 MCV 89.6 fl (82-101) 03/01/23 10:34 MCH 29.9 pg (27-33) 03/01/23 10:34 MCHC 33.3 g/dL (30-55) 03/01/23 10:34 RDW 12.2 % (12.1-15.1) 03/01/23 10:34 Plt Count 291 10^3/cmm (157-399) 03/01/23 10:34 MPV 8.4 fL (7.4-10.4) 03/01/23 10:34 Neut % (Auto) 62.9 % 03/01/23 10:34 Lymph % (Auto) 25.6 % 03/01/23 10:34 [place] % (Auto) 7.7 % 03/01/23 10:34 Eos % (Auto) 2.7 % 03/01/23 10:34 Baso % (Auto) 0.5 % 03/01/23 10:34 Neut # (Auto) 5.10 10^3/uL (1.8-7.7) 03/01/23 10:34 Lymph # (Auto) 2.1 10^3/uL (0.8-4.8) 03/01/23 10:34 [place] # (Auto) 0.6 10^3/uL (0.2-0.9) 03/01/23 10:34 Eos # (Auto) 0.2 10^3/uL (0.0-0.8) 03/01/23 10:34 Baso # (Auto) 0.0 10^3/uL (0.0-0.1) 03/01/23 10:34 Nucleated RBC % (auto) 0 % 03/01/23 10:34 Nucleated RBCs # 0.0 /100WBC 03/01/23 10:34 Sodium 139 mmol/L (136-145) 03/01/23 10:34 Potassium 4.2 mmol/L (3.5-5.1) 03/01/23 10:34 Chloride 102 mmol/L (98-107) 03/01/23 10:34 Carbon Dioxide 30 mmol/L (22-29) H 03/01/23 10:34 Anion Gap 11.2 (5-19) 03/01/23 10:34 BUN 11 mg/dL (6-20) 03/01/23 10:34 Creatinine 0.8 mg/dL (0.7-1.2) 03/01/23 10:34 GFR Calculation 115.1 mL/min (90-130) 03/01/23 10:34 Glucose 96 mg/dL (65-115) 03/01/23 10:34 Calculated Osmolality 287 mOsm/kg (285-295) 03/01/23 10:34 Calcium 9.5 mg/dL (8.5-10.5) 03/01/23 10:34 Total Bilirubin 0.4 mg/dL (0.15-1.2) 03/01/23 10:34 AST 17 U/L (0-40) 03/01/23 10:34 ALT 17 U/L (0-41) 03/01/23 10:34 Alkaline Phosphatase 86 U/L (40-130) 03/01/23 10:34 Total Protein 6.7 g/dL (6.6-8.7) 03/01/23 10:34 Albumin 4.5 g/dL (3.5-5.2) 03/01/23 10:34 Globulin 2.2 g/dL (1.3-4.6) 03/01/23 10:34 No radiology studies performed this visit Discharge Plan Discharge Patient Disposition: Home Clinical Impression: Drug overdose, Homelessness Condition: Stable Prescriptions: New Narcan 4 mg/actuation spray,non-aerosol 4 mg intranasal Q2M PRN (Reason: opioid overdose) Qty: 2 0RF Rx Instructions: spray 1 dose into ONE nostril; alternate nostrils w each dose until help arrives No Action buprenorphine-naloxone [Suboxone] 8-2 mg film 1 film sublingual BID Qty: 60 0RF Discharge Orders: Discharge ED (Routine); Ordered 03/01/23 Ordered By: Albino Oliva Referrals: Cody Louis DO [Primary Care Provider] - Discharge Diet: Usual diet Discharge Activity: Resume usual activity Patient Instructions: Opioid Safety, Pain Management Activity Restrictions/Additional Instructions: You are seen today after a fentanyl overdose. Strongly recommend not using fentanyl. You are given a prescription of Narcan, which is the antidote for opioid overdoses. Coding Level of Care Code ED Utility Worker Film Processing for Boris Jones
[2023-03-01 10:39] LABS: Basophils % 0.5 %; Eosinophils # 0.2 10^3/uL (0.0-0.8); Eosinophils % 2.7 %; Hematocrit 43.8 % (37-53); Lymphocytes # 2.1 10^3/uL (0.8-4.8); Lymphocytes % 25.6 %; Mean Corpuscular HGB Conc 33.3 g/dL (30-55); Mean Corpuscular Hemoglobin 29.9 pg (27-33); Mean Corpuscular Volume 89.6 fl (82-101); Mean Platelet Volume 8.4 fL (7.4-10.4); Monocytes # 0.6 10^3/uL (0.2-0.9); Monocytes % 7.7 %; Neutrophils % 62.9 %; Nucleated Red Blood Cells % 0 %; Platelet Count 291 10^3/cmm (157-399); Red Blood Count 4.89 10^6/uL (3.85-5.65); Red Cell Distribution Width 12.2 % (12.1-15.1)
[2023-03-01] MEDS: sodium chloride 0.9% 1,000 ML 999 ML IV (10:44)
[2023-03-01 11:01] LABS: Alanine Aminotransferase 17 U/L (0-41); Albumin Level 4.5 g/dL (3.5-5.2); Alkaline Phosphatase 86 U/L (40-130); Anion Gap 11.2 (5-19); Aspartate Amino Transferase 17 U/L (0-40); Blood Urea Nitrogen 11 mg/dL (6-20); Calcium 9.5 mg/dL (8.5-10.5); Carbon Dioxide 30 mmol/L (22-29); Chloride 102 mmol/L (98-107); Globulin 2.2 g/dL (1.3-4.6); Glomerular Filtration Rate 115.1 mL/min (90-130); Glucose 96 mg/dL (65-115); Osmolality Calculated 287 mOsm/kg (285-295); Potassium 4.2 mmol/L (3.5-5.1); Sodium 139 mmol/L (136-145); Total Bilirubin 0.4 mg/dL (0.15-1.2); Total Protein 6.7 g/dL (6.6-8.7)
[2023-03-01 11:26] VITALS: BP 122/75; PULSE 85; RESP 18; O2SAT 98
--- NOTE | 2023-03-01 12:10 | PC.SOCIAL ---
[facility] Called [facility] and spoke with Bri, she states that they have a male bed available, but patient will need to have a warrants check and arrive by 3:00. Spoke with patient and he is agreeable. Updated BLAKE Altamirano that patient's ride can be set up with [facility].
== END 2023-03-01 13:33 | disposition home or self-care (01) ==
PROVIDERS: Physician Assistant; Emergency Provider Family Medicine; PCP Electrodiagnostic Medicine
DX: T40.411A Poisoning by fentanyl or fentanyl analogs, accidental (unintentional), initial encounter (principal); Z59.00 Homelessness unspecified; F17.210 Nicotine dependence, cigarettes, uncomplicated; X58.XXXA Exposure to other specified factors, initial encounter
CPT/HCPCS: 80053; 85025; 93005; 96360; 99284; J7030

== ENCOUNTER → 2025-04-04 07:21 | Outpatient (BNVA) | payer MEDICAID, SELFPAY | PROVIDERS: PCP Nurse Practitioner Family; Visit Provider Nurse Practitioner Family | DX: Z72.51 High risk heterosexual behavior (principal); R39.9 Unspecified symptoms and signs involving the genitourinary system | CPT/HCPCS: 81000; 87491; 87591; 87661 ==